=== PATIENT | female | born 1960 | race Caucasian/White ===

== ENCOUNTER 2016-12-01 21:24 | Observation (INO) | payer OTHER ==
[2016-12-01 21:57] LABS: BASOPHIL % 0.2 % (0.0-0.4); Eosinophil % 2.2 % (0.00-5.0); Granulocytes % 53.9 % (36.0-66.0); Lymphocytes % 36.5 % (24.0-44.0); Mean Cell Volume 90.4 fl (78-100); Mean Corpuscular Hemoglobin 31.2 pg (26-32); Mean Platelet Volume 10.2 fl (6-9.5); Monocytes % 7.2 % (0.0-12.0); Platelet Count 342 K/mm3 (150-450); Red Blood Count 4.91 M/mm3 (4.1-5.4); Red Cell Distribution Width 14.2 % (11.5-14.0); White Blood Count 8.5 K/mm3 (4.0-10.5)
--- NOTE | 2016-12-01 21:58 | ERPHSYRPT ---
- History of Present Illness Time Seen by Provider: 12/01/16 21:53 Historian: patient Physician History: 55 y/o female with history of CAD comes to the ER with complaints of back and chest pain that started today while mowing the lawn. Pt admits to having the sensation that she was choking. Pt describes the pain as pressure-like, constant , 5/10 and not relieved by nitro and ASA. Pt also admits to having diaphoresis and shortness of breath. Pt does report feeling very emotional after having a discussion with a family member. Timing/Duration: today Activities at Onset: activity, emotional stress Quality: pressure Location: substernal, back Chest Pain Radiation: no radiation Severity of Pain-Max: severe Severity of Pain-Current: moderate Modifying Factors: Improves With: nothing Associated Symptoms: nausea, palpitations, shortness of breath Nitro Today/Relief: 0.4 mg x 1 Aspirin Treatment Today: 81 mg x 3 Allergies/Adverse Reactions: morphine Allergy (Intermediate, Verified 12/01/16 22:03) Hives Penicillins Allergy (Mild, Verified 12/01/16 22:03) Hives Sulfa (Sulfonamide Antibiotics) Allergy (Mild, Verified 12/01/16 22:03) Hives metaproterenol [From Alupent] Allergy (Verified 12/01/16 22:03) sulfamethoxazole [From Septra] Allergy (Verified 12/01/16 22:03) tetracycline Allergy (Verified 12/01/16 22:03) trimethoprim [From Septra] Allergy (Verified 12/01/16 22:03) Home Medications: Hydrocodone/APAP 10/325 mg [[place] 10/325 MG Tablet] 1 tab PO Q4-6HPRN PRN 12/04/12 [History] Potassium Chloride 10 Meq Tab* [Klor Con 10 MEQ] 10 meq PO DAILY 11/17/13 [ History] Methocarbamol 500 mg [Robaxin 500 MG] 1,000 mg PO QID 07/01/16 [History] Montelukast Sodium 10 mg [Singulair 10 MG] 1 tab DAILY 12/01/16 [History] Triamterene/Hydrochlorothiazid [Dyazide 37.5-25 Capsule] 1 tab DAILY 12/01/16 [ History] Hx Tetanus, Diphtheria Vaccination/Date Given: (UNKNOWN) Hx Influenza Vaccination/Date Given: No Hx Pneumococcal Vaccination/Date Given: No - Review of Systems Constitutional: No Fever, No Chills Eyes: No Symptoms Ears, Nose, & Throat: No Symptoms Respiratory: Dyspnea, No Cough Cardiac: Chest Pain, No Edema, No Syncope Abdominal/Gastrointestinal: No Abdominal Pain, No Nausea, No Vomiting, No Diarrhea Genitourinary Symptoms: No Dysuria Musculoskeletal: No Back Pain, No Neck Pain Skin: No Rash Neurological: No Dizziness, No Focal Weakness, No Sensory Changes Psychological: No Symptoms, Anxiety Endocrine: No Symptoms All Other Systems: Reviewed and Negative - Past Medical History Pertinent Past Medical History: No Neurological History: Migraines ENT History: Other Cardiac History: Myocardial Infarction (IA) Respiratory History: Asthma Endocrine Medical History: Hypothyroidism Musculoskeletal History: Rheumatoid Arthritis GI Medical History: No Pertinent History History: No Pertinent History Psycho-Social History: No Pertinent History Female Reproductive Disorders: No Pertinent History Other Medical History: FREQUENT SINUSITIS. ALLERGIES - Past Surgical History Past Surgical History: No Neuro Surgical History: No Pertinent History Cardiac: Cardiac Catheterization Respiratory: No Pertinent History Gastrointestinal: Appendectomy Genitourinary: No Pertinent History Musculoskeletal: No Pertinent History Female Surgical History: Section, Hysterectomy, Other Other Surgical History: 3 C SECTIONS - Social History Smoking Status: Current every day smoker How long have you smoked: 25 Exposure to second hand smoke: Yes Drug Use: none Patient Lives Alone: No - Female History Hx Now: No - Nursing Vital Signs Nursing Vital Signs: Initial Vital Signs Temperature 99.1 F 12/01/16 21:43 Pulse Rate 108 H 12/01/16 21:43 Respiratory Rate 20 12/01/16 21:43 Blood Pressure 120/90 12/01/16 21:43 O2 Sat by Pulse Oximetry 97 12/01/16 21:43 Pain Scale Pain Intensity 3 - Physical Exam General Appearance: no apparent distress, alert, anxiety Eye Exam: PERRL/EOMI, eyes nml inspection Ears, Nose, Throat Exam: normal ENT inspection, moist mucous membranes Neck Exam: normal inspection, non-tender, supple, full range of motion Respiratory Exam: normal breath sounds, lungs clear, No chest tenderness, No respiratory distress Cardiovascular Exam: regular rate/rhythm, normal heart sounds, normal peripheral pulses, tachycardia Gastrointestinal/Abdomen Exam: soft, No tenderness, No mass Back Exam: normal inspection, No CVA tenderness, No vertebral tenderness Extremity Exam: normal inspection, normal range of motion Neurologic Exam: alert, oriented x 3, cooperative, normal mood/affect, sensation nml, No motor deficits Skin Exam: normal color, warm, dry SpO2: 97 Oxygen Delivery: Room Air - Course Nursing assessment & vital signs reviewed: Yes EKG Interpreted by Me: RATE, NORMAL AXIS, NORMAL INTERVALS, NORMAL QRS Ordered Tests: Active Orders 24 hr Category Date Time Status Contract Agent STAT Care 12/01/16 21:52 Active IV Insertion STAT Care 12/01/16 22:31 Active Oxygen-ED Only NASAL CANNULA 2 lpm Care 12/01/16 22:07 Active CHEST 2 VIEWS (PA AND LAT) Stat Exams 12/01/16 21:52 Taken CBC W DIFF Stat Lab 12/01/16 21:45 Completed CK-Creatinine Phosphokinase Stat Lab 12/01/16 21:45 Completed CMP Stat Lab 12/01/16 21:45 Completed D-DIMER QUANTITATION Stat Lab 12/01/16 21:45 Completed NT PRO BNP Stat Lab 12/01/16 21:45 Completed PROTIME WITH INR Stat Lab 12/01/16 21:45 Completed PTT Stat Lab 12/01/16 21:45 Completed TROPONIN Q3H Lab 12/01/16 21:50 Completed TROPONIN Q3H Lab 12/02/16 01:00 Ordered TROPONIN Q3H Lab 12/02/16 04:00 Ordered TROPONIN Q3H Lab 12/02/16 07:00 Ordered TROPONIN Q3H Lab 12/02/16 10:00 Ordered Medication Summary Discontinued Medications Generic Name Dose Route Start Last Admin Trade Name Freq PRN Reason Stop Dose Admin Aspirin 162 mg 12/01/16 22:37 Baby Aspirin 81 Mg Chew PO 12/01/16 22:38 STAT ONE Potassium Chloride 40 meq 12/01/16 22:28 12/01/16 22:33 Klor Con 10 Meq PO 12/01/16 22:29 40 meq STAT ONE Administration Potassium Chloride Confirm 12/01/16 22:31 Klor Con 10 Meq Administered 12/01/16 22:32 Dose 40 meq PO .STK-MED ONE Lab/Rad Data: Laboratory Result Diagrams 12/01/16 21:45 12/01/16 21:45 Laboratory Results 12/01/16 12/01/16 12/01/16 Range/Units 21:50 21:45 21:45 WBC (4.0-10.5) K/mm3 RBC (4.1-5.4) M/mm3 Hgb (12.0-16.0) gm/dl Hct (35-47) % MCV (78-100) fl MCH (26-32) pg MCHC (32-36) g/dl RDW (11.5-14.0) % Plt Count (150-450) K/mm3 MPV (6-9.5) fl Gran % (36.0-66.0) % Lymphocytes % (24.0-44.0) % Monocytes % (0.0-12.0) % Eosinophils % (0.00-5.0) % Basophils % (0.0-0.4) % Basophils # (0-0.4) INR 0.98 (0.8-3.0) APTT 34.5 (25.3-37.0) SECONDS D-Dimer 224 (0-500) ng/mL Sodium 138 (136-145) mEq/L Potassium 3.1 L (3.5-5.1) mEq/L Chloride 97 L (98-107) mEq/L Carbon Dioxide 26.0 (21-32) mEq/L Anion Gap 18.5 H (5-15) MEQ/L BUN 20 (9-20) mg/dL Creatinine 1.36 H (0.55-1.30) mg/dl Estimated GFR 43 ML/MIN Glucose 135 H (70-110) MG/DL Calcium 10.7 H (8.5-10.1) mg/dL Total Bilirubin 0.20 (0.2-1.0) mg/dL AST 21 (15-37) U/L ALT 26 (12-78) U/L Alkaline Phosphatase 100 (46-116) U/L Creatine Kinase 80 (26-192) U/L Troponin I < 0.017 (0.000-0.056) ng/ml NT-Pro-B Natriuret Pep 85 (0-125) pg/ml Serum Total Protein 8.5 H (6.4-8.2) gm/dL Albumin 4.5 (3.4-5.0) g/dL 12/01/16 Range/Units 21:45 WBC 8.5 (4.0-10.5) K/mm3 RBC 4.91 (4.1-5.4) M/mm3 Hgb 15.3 (12.0-16.0) gm/dl Hct 44.4 (35-47) % MCV 90.4 (78-100) fl MCH 31.2 (26-32) pg MCHC 34.5 (32-36) g/dl RDW 14.2 H (11.5-14.0) % Plt Count 342 (150-450) K/mm3 MPV 10.2 H (6-9.5) fl Gran % 53.9 (36.0-66.0) % Lymphocytes % 36.5 (24.0-44.0) % Monocytes % 7.2 (0.0-12.0) % Eosinophils % 2.2 (0.00-5.0) % Basophils % 0.2 (0.0-0.4) % Basophils # 0.02 (0-0.4) INR (0.8-3.0) APTT (25.3-37.0) SECONDS D-Dimer (0-500) ng/mL Sodium (136-145) mEq/L Potassium (3.5-5.1) mEq/L Chloride (98-107) mEq/L Carbon Dioxide (21-32) mEq/L Anion Gap (5-15) MEQ/L BUN (9-20) mg/dL Creatinine (0.55-1.30) mg/dl Estimated GFR ML/MIN Glucose (70-110) MG/DL Calcium (8.5-10.1) mg/dL Total Bilirubin (0.2-1.0) mg/dL AST (15-37) U/L ALT (12-78) U/L Alkaline Phosphatase (46-116) U/L Creatine Kinase (26-192) U/L Troponin I (0.000-0.056) ng/ml NT-Pro-B Natriuret Pep (0-125) pg/ml Serum Total Protein (6.4-8.2) gm/dL Albumin (3.4-5.0) g/dL - Progress Progress: improved Progress Note: 12/01/16 22:38 Pt has a good chest pain story having chest pressure in the center of her chest with back pain. The EKG does not show any acute findings and the first set of troponin is negative. D-dimer is also negative and the CXR does not show any infiltrate. Pt no longer has chest pain. Pt will be given an additional ASA 162mg. Pt has been admitted to Dr Nation for chest pain. 12/01/16 22:39 - Departure Time of Disposition: 22:41 Departure Disposition: In-patient Admission Clinical Impression: Chest pain Qualifiers: Chest pain type: unspecified Qualified Code(s): R07.9 - Chest pain, unspecified Condition: Stable Critical Care Time: No Critical Care Time(excluding separately billable procedures): 30-74 minutes Referrals: AGUSTINA ANGULO MD [Primary Care Provider] -
[2016-12-01 22:04] LABS: INR 0.98 (0.8-3.0); PROTIME 11.1 SECONDS (9.95-12.35)
[2016-12-01 22:07] LABS: PTT 34.5 SECONDS (25.3-37.0)
[2016-12-01 22:20] LABS: ALBUMIN 4.5 g/dL (3.4-5.0); ANION GAP 18.5 MEQ/L (5-15); BILIRUBIN,TOTAL 0.2 mg/dL (0.2-1.0); Potassium 3.1 mEq/L (3.5-5.1); Total Protein 8.5 gm/dL (6.4-8.2)
[2016-12-01] MEDS ORDERED: Klor Con 10 MEQ PO ONE ×2 (22:28→22:31)
[2016-12-01] MEDS ORDERED: BABY ASPIRIN 81 MG CHEW PO ONE (22:37)
[2016-12-01] MEDS ORDERED: BABY ASPIRIN 81 MG CHEW ONE (22:41)
[2016-12-01] MEDS ORDERED: MAALOX ES 30 ML UNIT DOSE PO PRN (22:42)
[2016-12-01] MEDS ORDERED: MILK OF MAGNESIA 30 ML PO PRN (22:42)
[2016-12-01] MEDS ORDERED: Zofran 4 MG/2 ML VIAL IV PRN (22:42)
[2016-12-01] MEDS ORDERED: Senokot-S Tablet PO PRN (22:42)
[2016-12-01] MEDS ORDERED: Norco 10/325 MG Tablet PO PRN (22:44)
[2016-12-02] MEDS: TYLENOL 325 MG PO PRN ×2 (00:18→05:27)
[2016-12-02 07:14] VITALS: BP 121/64
[2016-12-02 07:22] VITALS: PULSE 85; O2SAT 97
--- NOTE | 2016-12-02 07:59 | PCM.HP ---
History of Present Illness - Chief Complaint Chief Complaint: chest pain Date: 12/02/16 History of Present Illness: is a 55 year old female. who after mowing the yard and getting in an argument with her began having sharp pains through the substernal area to her back. She also had a chocking sensation in her throat and felt short of breath and was sweating from mowing. She took 3 nitro in total with no change in symptoms. She came to ED and was feeling better and symptosm resolved in the ED. iNitial evaluation was negative and she had serial troponins overnight htat were negative. CXR was negative and hher symptoms are resolved now. She had cath previously without significant blockage but was told she had HI in the past with current ekg showing same changes as previous with possible ant/spetal HI - Review of Systems Constitutional: No Fever, No Chills Eyes: No Symptoms Ears, Nose, & Throat: No Symptoms Respiratory: No Cough, No Short Of Breath Cardiac: No Chest Pain, No Edema, No Syncope Abdominal/Gastrointestinal: No Abdominal Pain, No Nausea, No Vomiting, No Diarrhea Genitourinary Symptoms: No Dysuria Musculoskeletal: No Back Pain, No Neck Pain Skin: No Rash Neurological: No Dizziness, No Focal Weakness, No Sensory Changes Psychological: No Symptoms Endocrine: No Symptoms Hematologic/Lymphatic: No Symptoms Immunological/Allergic: No Symptoms Medications & Allergies Home Medications: Home Medication List Hydrocodone/APAP 10/325 mg [[place] 10/325 MG Tablet] 1 tab PO Q4-6HPRN PRN 12/04/12 [History Confirmed 12/02/16] Methocarbamol 500 mg [Robaxin 500 MG] 1,000 mg PO QID PRN PRN 07/01/16 [ History Confirmed 12/02/16] Montelukast Sodium 10 mg [Singulair 10 MG] 1 tab DAILY 12/01/16 [History Confirmed 12/01/16] Aspirin EC 325 mg [Ecotrin 325 MG] 325 mg PO DAILY tablet.ec 12/02/16 [Rx ] Chlorthalidone 25 mg PO DAILY #30 tablet 12/02/16 [Rx] Potassium Chloride 10 Meq Tab* [Klor Con 10 MEQ] 30 meq PO DAILY #90 tab [Rx] Allergies/Adverse Reactions: Allergies Allergy/AdvReac Type Severity Reaction Status Date / Time morphine Allergy Intermediate Hives Verified 12/01/16 22:03 Penicillins Allergy Mild Hives Verified 12/01/16 22:03 Sulfa (Sulfonamide Allergy Mild Hives Verified 12/01/16 22:03 Antibiotics) metaproterenol [From Alupent] Allergy Verified 12/01/16 22:03 sulfamethoxazole Allergy Verified 12/01/16 22:03 [From Septra] tetracycline Allergy Verified 12/01/16 22:03 trimethoprim [From Septra] Allergy Verified 12/01/16 22:03 - Past Medical History Past Medical History: Yes Neurological History: No Pertinent History ENT History: No Pertinent History Cardiac History: Other Respiratory History: Asthma Endocrine Medical History: Hypothyroidism Musculoskelatal History: Arthritis GI Medical History: Diverticulitis, Polyps History: No Pertinent History Pyscho-Social History: No Pertinent History Reproductive Disorders: Endometriosis, Other Comment: Pt states she has mitroval prolapse. Pt had an HI in May. Pt has issues with UTI and Kidney stones. Historectomy in 2006 - Female History Hx Last Menstrual Period: hyst Are you now?: No - Past Surgical History Past Surgical History: Yes Neuro Surgical History: No Pertinent History Cardiac History: No Pertinent History Respiratory Surgery: No Pertinent History GI Surgical History: Appendectomy Genitourinary Surgical Hx: No Pertinent History Musculskeletal Surgical Hx: No Pertinent History Female Surgical History: Hysterectomy, Section Other Surgical History: 3 C-Sections, hystorectomy in 2005 - Social History Smoking Status: Current every day smoker How long have you smoked: 25 Exposure to second hand smoke: Yes Alcohol: None Drug Use: none - Physical Exam Vital Signs: Vital Signs - 24 hr Temp Pulse Resp BP Pulse Ox 12/02/16 07:18 85 18 97 12/02/16 07:13 97.8 F 90 20 121/64 95 12/02/16 05:56 56 L 20 96 12/02/16 04:00 98.2 F 83 18 114/58 98 12/01/16 23:27 98.6 F 94 H 18 131/61 98 Oxygen-Last 24 hours O2 Percentage 2 Liters = 28% O2 Percentage 2 Liters = 28% O2 Percentage 2 Liters = 28% General Appearance: no apparent distress, alert Neurologic Exam: alert, oriented x 3, cooperative, normal mood/affect, nml cerebellar function, nml station & gait, sensation nml, No motor deficits Eye Exam: PERRL/EOMI, eyes nml inspection Ears, Nose, Throat Exam: normal ENT inspection, TMs normal, pharynx normal, moist mucous membranes Neck Exam: normal inspection, non-tender, supple, full range of motion Respiratory Exam: normal breath sounds, lungs clear, No respiratory distress Cardiovascular Exam: regular rate/rhythm, normal heart sounds, normal peripheral pulses Gastrointestinal/Abdomen Exam: soft, normal bowel sounds, No tenderness, No mass Back Exam: normal inspection, normal range of motion, No CVA tenderness, No vertebral tenderness Extremity Exam: normal inspection, normal range of motion, pelvis stable Skin Exam: normal color, warm, dry, No rash Lymphatic Exam: No adenopathy Results - Labs Lab/Micro Results: Lab Results-Last 24 Hours 12/02/16 12/02/16 12/02/16 Range/Units 01:45 04:00 07:00 Troponin I < 0.017 < 0.017 < 0.017 (0.000-0.056) ng/ml Triglycerides (30-200) mg/dL Cholesterol (100-200) mg/dL LDL Cholesterol (5-99) mg/dL HDL Cholesterol (35-60) mg/dL Heart Disease Risk Ratio 12/02/16 Range/Units 07:00 Troponin I (0.000-0.056) ng/ml Triglycerides 317 H (30-200) mg/dL Cholesterol 306 H (100-200) mg/dL LDL Cholesterol 187 H (5-99) mg/dL HDL Cholesterol 32 L (35-60) mg/dL Heart Disease Risk Ratio 9.6 - Other Procedures and Tests Respiratory Therapy 12/02/16 05:51 Oxygen NASAL CANNULA 2 lpm 12/03/16 05:00 EKG ONCE 12/04/16 05:00 EKG ONCE 12/05/16 05:00 EKG ONCE Assessment/Plan (1) Chest pain Status: Acute Qualifiers: Chest pain type: unspecified Qualified Code(s): R07.9 - Chest pain, unspecified Assessment & Plan: resolved. With previous history of HI set up for outpatient stress test chest pain precautiosn discussed Code(s): R07.9 - CHEST PAIN, UNSPECIFIED (2) Anxiety Status: Acute Code(s): F41.9 - ANXIETY DISORDER, UNSPECIFIED
--- NOTE | 2016-12-02 08:01 | PCM.DCORD ---
- Discharge Discharge Date: 12/02/16 Disposition: Home, Self-Care Condition: Stable Prescriptions: New Chlorthalidone 25 mg PO DAILY #30 tablet Aspirin EC 325 mg [Ecotrin 325 MG] 325 mg PO DAILY tablet.ec Continue Hydrocodone/APAP 10/325 mg [[place] 10/325 MG Tablet] 1 tab PO Q4-6HPRN PRN PRN Reason: Pain Methocarbamol 500 mg [Robaxin 500 MG] 1,000 mg PO QID PRN PRN PRN Reason: Pain Montelukast Sodium 10 mg [Singulair 10 MG] 1 tab DAILY Changed Potassium Chloride 10 Meq Tab* [Klor Con 10 MEQ] 30 meq PO DAILY #90 tab Discontinued Triamterene/Hydrochlorothiazid [Dyazide 37.5-25 Capsule] 1 tab DAILY Follow up with: MINERVA ENRIQUE [Primary Care Provider] - 1 Week
--- NOTE | 2016-12-02 09:21 | XRAY ---
Indication: Chest pain. Comparison: November 17, 2013. PA/lateral chest again demonstrates normal heart and lungs. Bony thorax intact with now healing right 5th rib fracture.
[2016-12-02] MEDS ORDERED: TRIAMTERENE PO SCH (10:00)
[2016-12-02] MEDS ORDERED: Klor Con 10 MEQ PO SCH ×2 (10:00)
[2016-12-02] MEDS ORDERED: HYDROCHLOROTHIAZID PO SCH (10:00)
[2016-12-02] MEDS ORDERED: Singulair 10 MG PO SCH (10:00)
[2016-12-02] MEDS ORDERED: Maxzide-25MG Tablet PO SCH (10:00)
[2016-12-02] MEDS ORDERED: Ecotrin 325 MG PO SCH (10:00)
[2016-12-02] MEDS ORDERED: Robaxin 500 MG PO PRN (10:00)
== END 2016-12-02 09:00 | disposition home or self-care (01) ==
LOC: ED 21:24 → MED SURG 23:02
PROVIDERS: ADMIT Family Medicine; ATTEND Family Medicine
DX: R07.89 Other chest pain (principal); R07.9 Chest pain, unspecified; F41.9 Anxiety disorder, unspecified; R06.02 Shortness of breath; J45.909 Unspecified asthma, uncomplicated; E03.9 Hypothyroidism, unspecified; M19.90 Unspecified osteoarthritis, unspecified site; Z72.0 Tobacco use; Z79.899 Other long term (current) drug therapy
CPT/HCPCS: 36000; 36415; 71020; 80053; 80061; 82550; 83721; 83880; 84484; 85025; 85379; 85610; 85730; 93005; 93041; 93268; 94760; 99285; G0378; A9270-GY

== ENCOUNTER 2016-12-21 18:36 | Emergency (ER) | payer OTHER ==
[2016-12-21] MEDS ORDERED: BACIGUENT PACKET TP ONE (19:15)
[2016-12-21] MEDS ORDERED: Adacel Vial IM ONE ×2 (19:15→19:18)
[2016-12-21] MEDS ORDERED: XYLOCAINE 1% HCL 20 ML MDV IJ ONE (19:16)
[2016-12-21] MEDS ORDERED: BACIGUENT PACKET ONE (19:18)
--- NOTE | 2016-12-21 19:21 | ERPHSYRPT ---
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 Her right ear since 1:00 this afternoon. According to the patient she tripped over her mother's cane and struck the side of her head she has an approximately 2 cm laceration to the superior right ear she states she clean the area and placed bacitracin. She has mild tenderness in the on this Posterior to the ear she had no loss of consciousness she is not dizzy she has no neck pain Past medical history includes hypothyroidism, asthma, diverticulitis, polyps, endometriosis, arthritis, mitral valve prolapse, MD, UTI, kidney stones, hysterectomy Past surgical history includes and hysterectomy Last tetanus was 7 or 8 years ago Timing/Duration: today (1:00 this afternoon) Modifying Factors: Improves With: nothing Associated Symptoms: other (laceration superior aspect right ear(auricle)), No nausea, No vomiting, No abdominal pain, No shortness of breath, No heartburn, No diaphoresis, No cough, No chills, No chest pain, No fever, No headaches, No loss of appetite, No malaise, No rash, No syncope, No seizure, No weakness Allergies/Adverse Reactions: morphine Allergy (Intermediate, Verified 12/21/16 18:45) Hives Penicillins Allergy (Mild, Verified 12/21/16 18:45) Hives Sulfa (Sulfonamide Antibiotics) Allergy (Mild, Verified 12/21/16 18:45) Hives metaproterenol [From Alupent] Allergy (Verified 12/21/16 18:45) sulfamethoxazole [From Septra] Allergy (Verified 12/21/16 18:45) tetracycline Allergy (Verified 12/21/16 18:45) trimethoprim [From Septra] Allergy (Verified 12/21/16 18:45) Home Medications: Hydrocodone/APAP 10/325 mg [[place] 10/325 MG Tablet] 1 tab PO Q4-6HPRN PRN 12/04/12 [History] Methocarbamol 500 mg [Robaxin 500 MG] 1,000 mg PO QID PRN PRN 07/01/16 [ History] Montelukast Sodium 10 mg [Singulair 10 MG] 1 tab DAILY 12/01/16 [History] Hx Tetanus, Diphtheria Vaccination/Date Given: No Hx Influenza Vaccination/Date Given: No Hx Pneumococcal Vaccination/Date Given: No Immunizations Up to Date: Yes - Review of Systems Constitutional: No Fever, No Chills Eyes: No Symptoms Ears, Nose, & Throat: No Symptoms, Ear Pain, Other (laceration superior right auricle), No Ear Discharge, No Hearing Changes, No Tinnitus, No Nose Pain, No Nose Discharge, No Sinus Drainage, No Epistaxis, No Mouth Pain, No Mouth Swelling, No Loose Teeth, No Throat Pain, No Throat Swelling, No Hoarse, No Painful Swallowing, No Snoring, No Stridor Respiratory: No Cough, No Dyspnea Cardiac: No Chest Pain, No Edema, No Syncope Abdominal/Gastrointestinal: No Abdominal Pain, No Nausea, No Vomiting, No Diarrhea Genitourinary Symptoms: No Dysuria Musculoskeletal: No Back Pain, No Neck Pain Skin: Other (lacerationsuperior right auricle) Neurological: No Dizziness, No Focal Weakness, No Sensory Changes Psychological: No Symptoms Endocrine: No Symptoms All Other Systems: Reviewed and Negative - Past Medical History Pertinent Past Medical History: Yes Neurological History: No Pertinent History ENT History: No Pertinent History Cardiac History: Other Respiratory History: Asthma Endocrine Medical History: Hypothyroidism Musculoskeletal History: Arthritis GI Medical History: Diverticulitis, Polyps History: No Pertinent History Psycho-Social History: No Pertinent History Female Reproductive Disorders: Endometriosis, Other Other Medical History: Pt states she has mitroval prolapse. Pt had an MD in May. Pt has issues with UTI and Kidney stones. Historectomy in 2006 - Past Surgical History Past Surgical History: Yes Neuro Surgical History: No Pertinent History Cardiac: No Pertinent History Respiratory: No Pertinent History Gastrointestinal: Appendectomy Genitourinary: No Pertinent History Musculoskeletal: No Pertinent History Female Surgical History: Hysterectomy, Section Other Surgical History: 3 C-Sections, hystorectomy in 2006 - Social History Smoking Status: Current every day smoker How long have you smoked: 25 Exposure to second hand smoke: Yes Drug Use: none Patient Lives Alone: No - Female History Hx Now: No - Nursing Vital Signs Nursing Vital Signs: Initial Vital Signs Temperature 98.5 F 12/21/16 18:42 Pulse Rate 110 H 12/21/16 18:42 Respiratory Rate 18 12/21/16 18:42 Blood Pressure 150/81 12/21/16 18:42 O2 Sat by Pulse Oximetry 97 12/21/16 18:42 Pain Scale Pain Intensity 6 - Physical Exam General Appearance: no apparent distress, alert Eye Exam: PERRL/EOMI, eyes nml inspection Ears, Nose, Throat Exam: normal ENT inspection, TMs normal, pharynx normal, moist mucous membranes, dry mucous membranes, other (laceration 2 cm superior right auricle), No TM abnormal (R), No TM abnormal (L) Neck Exam: normal inspection, non-tender, supple, full range of motion Respiratory Exam: normal breath sounds, lungs clear, No respiratory distress Cardiovascular Exam: regular rate/rhythm, normal heart sounds, normal peripheral pulses Gastrointestinal/Abdomen Exam: soft, normal bowel sounds, No tenderness, No mass Back Exam: normal inspection, normal range of motion, No CVA tenderness, No vertebral tenderness Extremity Exam: normal inspection, normal range of motion, pelvis stable Neurologic Exam: alert, oriented x 3, cooperative, normal mood/affect, nml cerebellar function, nml station & gait, sensation nml, No motor deficits Skin Exam: normal color, other (2 cm laceration superior right auracle) SpO2 Interpretation: normal (97%) SpO2: 97 Oxygen Delivery: Room Air - Course Nursing assessment & vital signs reviewed: Yes Ordered Tests: Active Orders 24 hr Category Date Time Status Prepare for Sutures STAT Care 12/21/16 19:15 Active Sutures STAT Care 12/21/16 19:15 Active Wound Care STAT Care 12/21/16 19:15 Active Medication Summary Discontinued Medications Generic Name Dose Route Start Last Admin Trade Name Freq PRN Reason Stop Dose Admin Bacitracin 0.9 gm 12/21/16 19:15 12/21/16 19:23 Baciguent Packet TP 12/21/16 19:16 1 gm STAT ONE Administration Bacitracin Confirm 12/21/16 19:18 Baciguent Packet Administered 12/21/16 19:19 Dose 1 gm .ROUTE .STK-MED ONE Diphtheria/Tetanus/Acell Pertussis 0.5 ml 12/21/16 19:15 12/21/16 19:22 Adacel Vial IM 12/21/16 19:16 0.5 ml .ONCE ONE Administration Diphtheria/Tetanus/Acell Pertussis Confirm 12/21/16 19:18 Adacel Vial Administered 12/21/16 19:19 Dose 0.5 ml IM .STK-MED ONE Lidocaine HCl 5 ml 12/21/16 19:16 12/21/16 19:27 Xylocaine 1% Hcl 20 Ml Mdv IJ 12/21/16 19:17 5 ml STAT ONE Administration - Progress Progress: improved Progress Note: 12/21/16 19:41 Laceration repair 2 cm laceration right auricle (ear) Laceration sterilely prepped and draped anesthetized with 1% lidocaine Past surgical she repaired using 6 6. 0 Prolene sutures (interrupted) Bacitracin applied Patient's DTaP updated 12/21/16 19:44 Although patient's has a listed allergy of penicillin she states she can take Keflex and has taken this in the past without problems. - Departure Time of Disposition: 19:42 Departure Disposition: Home Clinical Impression: 2 cm laceration repair right auricle Contusion of right ear Qualifiers: Encounter type: initial encounter Qualified Code(s): S00.431A - Contusion of right ear, initial encounter Condition: Fair Critical Care Time: No Referrals: MINERVA ENRIQUE [Primary Care Provider] - Instructions: Care for a Laceration After Repair Additional Instructions: Return home. Bacitracin to laceration until healed. Cold packs to area 24-48 hours. Keflex 500 mg orally 3 times a day for 10 days. Tylenol every 4 hours as needed for pain. Follow-up with your family doctor or return if problems or sign of infection. Return for acute distress or for severe symptoms Prescriptions: Cephalexin Mh 500 mg [Keflex 500 mg] 500 mg PO TID #30 capsule
[2016-12-21] MEDS ORDERED: KEFLEX 500 MG PO ONE (19:45)
[2016-12-21] MEDS ORDERED: KEFLEX 500 MG ONE (19:48)
[2016-12-21 20:06] VITALS: BP 125/78; PULSE 78; O2SAT 98
[2016-12-21] MEDS ORDERED: XYLOCAINE 1% HCL 20 ML MDV ONE (21:56)
== END 2016-12-21 20:05 | disposition home or self-care (01) ==
LOC: ED 18:36
PROC: 0HQ2XZZ Repair Right Ear Skin, External Approach (ICD-10-PCS; principal; 2016-12-21)
DX: S01.311A Laceration without foreign body of right ear, initial encounter (principal); W01.0XXA Fall on same level from slipping, tripping and stumbling without subsequent striking against object, initial encounter
CPT/HCPCS: 12011; 90471; 90715; 96372; 99283; A9270-GY

== ENCOUNTER 2017-05-18 09:19 | Emergency (ER) | payer OTHER ==
[2017-05-18 09:35] VITALS: O2SAT 97
[2017-05-18] MEDS ORDERED: BABY ASPIRIN 81 MG CHEW PO ONE (09:44)
--- NOTE | 2017-05-18 09:51 | ERPHSYRPT ---
- History of Present Illness Time Seen by Provider: 05/18/17 09:44 Source: patient Exam Limitations: no limitations Patient Subjective Stated Complaint: pt here for pain to left shoulder that comes and goes with sob, pain for 2 days, pt was here last night with her mother and has not slept much, is voiced concern she was afriad it was her heart ,pt has recently had extensive cardiac work up that was negative Triage Nursing Assessment: pt arrived per wc from pain clinic holding left arm and crying out in pain. pt alert, resp labored, skin w/d/p , no edema, chest clear Physician History: 56-year-old white female with history of chronic back and neck pain arrives with complaint of pain in the left posterior scapular area sharp shooting symptoms off and on since yesterday no nausea did have shortness of breath with pain. Patient apparently was [id number] night with her mother and then at the pain control clinic. Patient stated that her pain became severe and so came to the emergency room. She states she has not had any nausea no vomiting no coughs no fevers. Patient states she did not take any of her medicines today. Past medical history includes migraines, hypothyroidism, asthma, high blood pressure, diverticulitis, polyps, endometriosis, osteoarthritis, rheumatoid factor, mitral valve prolapse, myocardial infarction 2005, kidney stones, Patient with chronic pain syndrome with back pain and neck pain.. Past surgical history includes , hysterectomy, appendectomy Patient states she had a recent extensive cardiac workup and stated that it came back negative. Social history patient continues to smoke cigarettes Timing/Duration: yesterday Severity: moderate Modifying Factors: Improves With: nothing Associated Symptoms: shortness of breath, other (pain in the posterior scapular area sharp shooting intermittent), No nausea, No vomiting, No abdominal pain, No heartburn, No diaphoresis, No cough, No chills, No chest pain, No fever, No headaches, No loss of appetite, No malaise, No rash, No syncope, No seizure, No weakness Allergies/Adverse Reactions: morphine Allergy (Intermediate, Verified 05/18/17 09:35) Hives Penicillins Allergy (Mild, Verified 05/18/17 09:35) Hives Sulfa (Sulfonamide Antibiotics) Allergy (Mild, Verified 05/18/17 09:35) Hives metaproterenol [From Alupent] Allergy (Verified 05/18/17 09:35) sulfamethoxazole [From Septra] Allergy (Verified 05/18/17 09:35) tetracycline Allergy (Verified 05/18/17 09:35) trimethoprim [From Septra] Allergy (Verified 05/18/17 09:35) Home Medications: Methocarbamol 500 mg [Robaxin 500 MG] 1,000 mg PO QID PRN PRN 07/01/16 [ History] Montelukast Sodium 10 mg [Singulair 10 MG] 1 tab DAILY 12/01/16 [History] AMITRIPTYLINE HCL 50 mg Tab [AMITRIPTYLINE HCL 50 mg Tablet] 50 mg PO HS [History] Celecoxib [Celebrex] 200 mg PO DAILY 05/11/17 [History] Omeprazole 20 MG [Prilosec 20 mg] 20 mg PO DAILY 05/11/17 [History] Hx Tetanus, Diphtheria Vaccination/Date Given: No Hx Influenza Vaccination/Date Given: Yes Hx Pneumococcal Vaccination/Date Given: No Immunizations Up to Date: Yes - Review of Systems Constitutional: No Fever, No Chills Eyes: No Symptoms Ears, Nose, & Throat: No Symptoms Respiratory: Dyspnea (shortness of breath when she has pain), No No Symptoms, No Cough, No Cyanosis, No Dyspnea on Exertion (FARRAR), No Stridor, No Wheezing Cardiac: Other (pain posterior scapular area sharp shooting, seconds in duration , intermittent since yesterday), No Chest Pain, No Edema, No Palpitations, No Syncope, No Orthopnea, No PND Abdominal/Gastrointestinal: No Abdominal Pain, No Nausea, No Vomiting, No Diarrhea Genitourinary Symptoms: No Dysuria Musculoskeletal: No Back Pain, No Neck Pain Skin: No Rash Neurological: No Dizziness, No Focal Weakness, No Sensory Changes Psychological: No Symptoms Endocrine: No Symptoms All Other Systems: Reviewed and Negative - Past Medical History Pertinent Past Medical History: Yes Neurological History: Migraines ENT History: No Pertinent History Cardiac History: Hypertension, Myocardial Infarction ([place]) Respiratory History: Asthma, Other Endocrine Medical History: Hypothyroidism, Other Musculoskeletal History: Osteoarthritis, Rheumatoid Arthritis GI Medical History: Diverticulitis, Polyps History: No Pertinent History Psycho-Social History: No Pertinent History Female Reproductive Disorders: Endometriosis, Other Other Medical History: UTI in summer, found stones in kidneys. Changed lasix to chlorthalidone. [place] June 2005. L4-5 disc herniation. - Past Surgical History Past Surgical History: Yes Neuro Surgical History: No Pertinent History Cardiac: No Pertinent History Respiratory: No Pertinent History Gastrointestinal: Appendectomy Genitourinary: No Pertinent History Musculoskeletal: No Pertinent History Female Surgical History: Hysterectomy, Section Other Surgical History: 3 C-Sections, hystorectomy in 2006 - Social History Smoking Status: Current every day smoker How long have you smoked: 25 Exposure to second hand smoke: Yes Drug Use: none Patient Lives Alone: No - Female History Hx Last Menstrual Period: post Hx Now: No - Nursing Vital Signs Nursing Vital Signs: Initial Vital Signs Temperature 98.2 F 05/18/17 09:21 Pulse Rate 102 H 05/18/17 09:21 Respiratory Rate 18 05/18/17 09:21 Blood Pressure 152/120 05/18/17 09:21 O2 Sat by Pulse Oximetry 97 05/18/17 09:21 Pain Scale Pain Intensity 7 - Physical Exam General Appearance: other (patient inmoderate distress on arrival to emergency room, now of mild distress) Eye Exam: PERRL/EOMI, eyes nml inspection Ears, Nose, Throat Exam: normal ENT inspection, TMs normal, pharynx normal, moist mucous membranes Neck Exam: normal inspection, non-tender, supple, full range of motion Respiratory Exam: normal breath sounds, lungs clear, No respiratory distress Cardiovascular Exam: regular rate/rhythm, normal heart sounds, normal peripheral pulses Gastrointestinal/Abdomen Exam: soft, normal bowel sounds, No tenderness, No mass Back Exam: normal inspection, normal range of motion, No CVA tenderness, No vertebral tenderness Extremity Exam: normal inspection, normal range of motion, pelvis stable Neurologic Exam: alert, oriented x 3, cooperative, normal mood/affect, nml cerebellar function, nml station & gait, sensation nml, No motor deficits Skin Exam: normal color, warm, dry, No rash Lymphatic Exam: No adenopathy SpO2 Interpretation: normal (97%) SpO2: 97 Oxygen Delivery: Room Air - Course Nursing assessment & vital signs reviewed: Yes EKG Interpreted by Me: RATE (96 bpm), Sinus Rhythm, Left Trail Deviation, Other ( EKG sinus rhythm, 96 bpm, left axis deviation, poor anterior R-wave progression , no acute ST or T wave changes compared to December 02, 2016) - Radiology Exams Chest X-ray Interpretation: Discussed w/ radiologist (chest x-ray: Normal heart and lungs. Bony thorax intact with healed right fifth rib fracture. No new/acute findings) Ordered Tests: Active Orders 24 hr Category Date Time Status Tire Assembler STAT Care 05/18/17 09:44 Active EKG-ER Only STAT Care 05/18/17 09:44 Active IV Insertion STAT Care 05/18/17 09:44 Active Pulse Oximetry (ED) STAT Care 05/18/17 09:44 Active CHEST 1 VIEW (PORTABLE) Stat Exams 05/18/17 09:44 Completed AMYLASE Stat Lab 05/18/17 09:52 Ordered AMYLASE Stat Lab 05/18/17 10:00 Completed CBC W DIFF Stat Lab 05/18/17 10:00 Completed CMP Stat Lab 05/18/17 10:00 Completed D-DIMER QUANTITATION Stat Lab 05/18/17 10:00 Completed LIPASE Stat Lab 05/18/17 09:52 Ordered LIPASE Stat Lab 05/18/17 10:00 Completed PROTIME WITH INR Stat Lab 05/18/17 10:00 Completed PTT Stat Lab 05/18/17 10:00 Completed TROPONIN Q3H Lab 05/18/17 10:00 Completed TROPONIN Q3H Lab 05/18/17 12:45 Ordered TROPONIN Q3H Lab 05/18/17 15:45 Ordered TROPONIN Q3H Lab 05/18/17 18:45 Ordered TROPONIN Q3H Lab 05/18/17 21:45 Ordered Medication Summary Discontinued Medications Generic Name Dose Route Start Last Admin Trade Name Freq PRN Reason Stop Dose Admin Aspirin 324 mg 05/18/17 09:44 05/18/17 10:24 Baby Aspirin 81 Mg Chew PO 05/18/17 09:45 324 mg STAT ONE Administration Aspirin Confirm 05/18/17 10:23 Baby Aspirin 81 Mg Chew Administered 05/18/17 10:24 Dose 324 mg .ROUTE .ST-MED ONE Lab/Rad Data: Laboratory Result Diagrams 05/18/17 10:00 05/18/17 10:00 Laboratory Results 05/18/17 05/18/17 05/18/17 Range/Units 10:00 10:00 10:00 WBC (4.0-10.5) K/mm3 RBC (4.1-5.4) M/mm3 Hgb (12.0-16.0) gm/dl Hct (35-47) % MCV (78-100) fl MCH (26-32) pg MCHC (32-36) g/dl RDW (11.5-14.0) % Plt Count (150-450) K/mm3 MPV (6-9.5) fl Gran % (36.0-66.0) % Lymphocytes % (24.0-44.0) % Monocytes % (0.0-12.0) % Eosinophils % (0.00-5.0) % Basophils % (0.0-0.4) % Basophils # (0-0.4) INR 0.94 (0.8-3.0) APTT 31.8 (25.3-37.0) SECONDS D-Dimer 228.97 (0-500) ng/mL Sodium 139 (136-145) mEq/L Potassium 4.3 (3.5-5.1) mEq/L Chloride 103 (98-107) mEq/L Carbon Dioxide 24.9 (21-32) mEq/L Anion Gap 15.6 H (5-15) MEQ/L BUN 19 (9-20) mg/dL Creatinine 1.06 (0.55-1.30) mg/dl Estimated GFR 57 ML/MIN Glucose 98 (70-110) MG/DL Calcium 9.4 (8.5-10.1) mg/dL Total Bilirubin 0.20 (0.2-1.0) mg/dL AST 14 L (15-37) U/L ALT 17 (12-78) U/L Alkaline Phosphatase 98 (46-116) U/L Troponin I < 0.017 (0.000-0.056) ng/ml Serum Total Protein 8.4 H (6.4-8.2) gm/dL Albumin 4.2 (3.4-5.0) g/dL Amylase 44 (25-115) U/L Lipase 140 (73-393) U/L 05/18/17 Range/Units 10:00 WBC 9.3 (4.0-10.5) K/mm3 RBC 4.78 (4.1-5.4) M/mm3 Hgb 14.6 (12.0-16.0) gm/dl Hct 44.9 (35-47) % MCV 93.9 (78-100) fl MCH 30.5 (26-32) pg MCHC 32.5 (32-36) g/dl RDW 15.8 H (11.5-14.0) % Plt Count 374 (150-450) K/mm3 MPV 9.5 (6-9.5) fl Gran % 65.7 (36.0-66.0) % Lymphocytes % 24.8 (24.0-44.0) % Monocytes % 6.0 (0.0-12.0) % Eosinophils % 3.3 (0.00-5.0) % Basophils % 0.2 (0.0-0.4) % Basophils # 0.02 (0-0.4) INR (0.8-3.0) APTT (25.3-37.0) SECONDS D-Dimer (0-500) ng/mL Sodium (136-145) mEq/L Potassium (3.5-5.1) mEq/L Chloride (98-107) mEq/L Carbon Dioxide (21-32) mEq/L Anion Gap (5-15) MEQ/L BUN (9-20) mg/dL Creatinine (0.55-1.30) mg/dl Estimated GFR ML/MIN Glucose (70-110) MG/DL Calcium (8.5-10.1) mg/dL Total Bilirubin (0.2-1.0) mg/dL AST (15-37) U/L ALT (12-78) U/L Alkaline Phosphatase (46-116) U/L Troponin I (0.000-0.056) ng/ml Serum Total Protein (6.4-8.2) gm/dL Albumin (3.4-5.0) g/dL Amylase (25-115) U/L Lipase (73-393) U/L - Progress Progress: improved Progress Note: 05/18/17 11:07 Patient improved but not pain-free after aspirin 234 mg by mouth. Labs are normal. Troponin normal d-dimer normal chest x-ray normal EKG no acute changes. I've offered repeat troponin. Patient is considering this. 05/18/17 11:12 The patient has decided that she does not want to stay for repeat troponin. I have told her that I cannot completely rule out cardiac etiology without doing this however she does not want to stay she states she's already played the heart game. Will release patient patient to take Tylenol as needed for pain and to follow- up with her pain security control center operator or her family doctor. 05/18/17 11:20 Patient's blood pressure is markedly improved as compared to arrival. - Departure Time of Disposition: 11:14 Departure Disposition: Home Clinical Impression: History of chronic pain Back pain Qualifiers: Back pain location: thoracic back pain Chronicity: unspecified Back pain laterality: bilateral Qualified Code(s): M54.6 - Pain in thoracic spine Condition: Fair Critical Care Time: No Referrals: MINERVA ENRIQUE [Primary Care Provider] - Additional Instructions: Return home, rest. Tylenol every 4 hours as needed for pain. Follow-up with your family doctor or pain security control center operator. Return for acute distress or for severe symptoms.
[2017-05-18 10:00] LABS: BASOPHIL % 0.2 % (0.0-0.4); Basophil (Absolute #) 0.02 (0-0.4); Eosinophil % 3.3 % (0.00-5.0); Eosinophil (Absolute #) 0.31 (0-0.5); Granulocyte Absolute (ANC) 6.13 (1.4-6.9); Granulocytes % 65.7 % (36.0-66.0); Hematocrit 44.9 % (35-47); Hemoglobin 14.6 gm/dl (12.0-16.0); Lymphocyte (Absolute #) 2.32 (1.0-4.6); Lymphocytes % 24.8 % (24.0-44.0); Mean Cell Volume 93.9 fl (78-100); Mean Corpuscular Hemoglobin 30.5 pg (26-32); Mean Corpuscular Hgb Concent. 32.5 g/dl (32-36); Mean Platelet Volume 9.5 fl (6-9.5); Monocyte (Absolute #) 0.56 (0.0-1.3); Platelet Count 374 K/mm3 (150-450); Red Blood Count 4.78 M/mm3 (4.1-5.4); Red Cell Distribution Width 15.8 % (11.5-14.0); White Blood Count 9.3 K/mm3 (4.0-10.5)
[2017-05-18] MEDS ORDERED: BABY ASPIRIN 81 MG CHEW ONE (10:23)
[2017-05-18 10:34] LABS: INR 0.94 (0.8-3.0)
[2017-05-18 10:36] LABS: D-DIMER QUANTITATION 228.97 ng/mL (0-500)
[2017-05-18 10:37] LABS: PTT 31.8 SECONDS (25.3-37.0)
[2017-05-18 10:41] LABS: ALBUMIN 4.2 g/dL (3.4-5.0); ANION GAP 15.6 MEQ/L (5-15); BILIRUBIN,TOTAL 0.2 mg/dL (0.2-1.0); Calcium 9.4 mg/dL (8.5-10.1); Carbon Dioxide 24.9 mEq/L (21-32); Creatinine 1 1.06 mg/dl (0.55-1.30); Potassium 4.3 mEq/L (3.5-5.1); Total Protein 8.4 gm/dL (6.4-8.2)
--- NOTE | 2017-05-18 10:43 | XRAY ---
Indication: Scapular pain. Comparison: December 01, 2016. Portable apical lordotic chest again demonstrates normal heart and lungs. Bony thorax intact with healed right 5th rib fracture. No new/acute findings.
[2017-05-18 10:59] VITALS: BP 139/67; PULSE 90
== END 2017-05-18 11:51 | disposition home or self-care (01) ==
LOC: ED 09:19
DX: M54.6 Pain in thoracic spine (principal); I10 Essential (primary) hypertension; I25.2 Old myocardial infarction; J45.909 Unspecified asthma, uncomplicated; E03.9 Hypothyroidism, unspecified; M19.90 Unspecified osteoarthritis, unspecified site; M06.9 Rheumatoid arthritis, unspecified; N80.9 Endometriosis, unspecified; Z72.0 Tobacco use; Z79.899 Other long term (current) drug therapy
CPT/HCPCS: 36000; 36415; 71045; 80053; 82150; 83690; 84484; 85025; 85379; 85610; 85730; 93005; 93041; 99284; A9270-GY

== ENCOUNTER 2022-01-03 11:39 | Observation (INO) | payer SELFPAY ==
--- NOTE | 2022-01-03 12:10 | ERPHSYRPT ---
- History of Present Illness Time Seen by Provider: 01/03/22 11:50 Source: patient Exam Limitations: clinical condition Physician History: This is a 61-year-old white female patient of Dr. Angulo who presents with 2- day history of left-sided weakness and facial drooping. Patient was last normal at 10:30 PM on 01/01/2022 as she went to bed. Patient states that she woke up and fell and has had left-sided weakness ever since. Patient also stated that in the last 6 weeks after her COVID 19 infection diagnosis she has had frequent, severe headaches. She denies chest pain she denies abdominal pain. She denies nausea vomiting or diarrhea. She has no UTI symptoms. She has never had anything like this before. Timing/Duration: day(s) (2) Severity: moderate Associated Symptoms: weakness (Left side) Allergies/Adverse Reactions: morphine Allergy (Intermediate, Verified 05/18/17 09:35) Hives Penicillins Allergy (Mild, Verified 05/18/17 09:35) Hives Sulfa (Sulfonamide Antibiotics) Allergy (Mild, Verified 05/18/17 09:35) Hives metaproterenol [From Alupent] Allergy (Verified 05/18/17 09:35) sulfamethoxazole [From Septra] Allergy (Verified 05/18/17 09:35) tetracycline Allergy (Verified 05/18/17 09:35) trimethoprim [From Septra] Allergy (Verified 05/18/17 09:35) Home Medications: Montelukast Sodium 10 mg [Singulair 10 MG] 1 tab DAILY 12/01/16 [History] Omeprazole 20 MG [Prilosec 20 mg] 20 mg PO DAILY 05/11/17 [History] Hx Tetanus, Diphtheria Vaccination/Date Given: No Hx Influenza Vaccination/Date Given: Yes Hx Pneumococcal Vaccination/Date Given: No Travel Risk - International Travel Have you traveled outside of the country in past 3 weeks: No - Coronavirus Screening Are you exhibiting any of the following symptoms?: No Close contact with a COVID-19 positive Pt in past 14-21 Days: No - Review of Systems Constitutional: Weakness Eyes: No Symptoms (Left side) Ears, Nose, & Throat: Other (Left facial drooping) Respiratory: No Symptoms Cardiac: No Symptoms Abdominal/Gastrointestinal: No Symptoms Genitourinary Symptoms: No Symptoms Musculoskeletal: Other (Left upper and lower extremity weakness) Skin: No Symptoms Neurological: Speech Changes, Other (Left upper and lower extremity weakness) Psychological: No Symptoms Endocrine: No Symptoms Hematologic/Lymphatic: No Symptoms Immunological/Allergic: No Symptoms All Other Systems: Reviewed and Negative - Past Medical History Pertinent Past Medical History: Yes Neurological History: Migraines ENT History: No Pertinent History Cardiac History: Hypertension, Myocardial Infarction ([place]) Respiratory History: Asthma, Other Endocrine Medical History: Hypothyroidism, Other Musculoskeletal History: Osteoarthritis, Rheumatoid Arthritis GI Medical History: Diverticulitis, Polyps History: No Pertinent History Psycho-Social History: No Pertinent History Female Reproductive Disorders: Endometriosis, Other Other Medical History: UTI in summer, found stones in kidneys. Changed lasix to chlorthalidone. [place] June 2005. L4-5 disc herniation. - Past Surgical History Past Surgical History: Yes Neuro Surgical History: No Pertinent History Cardiac: No Pertinent History Respiratory: No Pertinent History Gastrointestinal: Appendectomy Genitourinary: No Pertinent History Musculoskeletal: No Pertinent History Female Surgical History: Hysterectomy, Section Other Surgical History: 3 C-Sections, hystorectomy in 2005 - Social History Smoking Status: Current every day smoker How long have you smoked: 25 Exposure to second hand smoke: Yes Drug Use: none Patient Lives Alone: No - Nursing Vital Signs Nursing Vital Signs: Initial Vital Signs Temperature 96.8 F 01/03/22 11:57 Pulse Rate 90 01/03/22 11:57 Respiratory Rate 18 01/03/22 11:57 Blood Pressure 153/82 01/03/22 11:57 O2 Sat by Pulse Oximetry 98 01/03/22 11:57 Pain Scale Pain Intensity 0 - Physical Exam General Appearance: no apparent distress, alert, anxiety Eye Exam: PERRL/EOMI, eyes nml inspection Ears, Nose, Throat Exam: other (Left facial drooping) Neck Exam: normal inspection, non-tender, supple, full range of motion Respiratory Exam: normal breath sounds, lungs clear, airway intact, No chest tenderness, No respiratory distress Cardiovascular Exam: regular rate/rhythm, normal heart sounds, normal peripheral pulses Gastrointestinal/Abdomen Exam: soft, normal bowel sounds, No tenderness Pelvic Exam: not done Rectal Exam: not done Back Exam: normal inspection, normal range of motion, No CVA tenderness, No vertebral tenderness Extremity Exam: normal inspection, normal range of motion, pelvis stable Neurologic Exam: alert, oriented x 3, cooperative, motor deficits, facial droop (Left side) Skin Exam: normal color, warm, dry Lymphatic Exam: No adenopathy SpO2 Interpretation: normal O2 Delivery: Room Air - Course Nursing assessment & vital signs reviewed: Yes Ordered Tests: Active Orders 24 hr Category Date Time Status EKG-ER Only STAT Care 01/03/22 12:21 Active IV Insertion STAT Care 01/03/22 12:21 Active NPO (ED) STAT Care 01/03/22 12:21 Active POCT Glucose Check STAT Care 01/03/22 12:25 Active Pulse Oximetry (ED) STAT Care 01/03/22 12:21 Active Consult Neurology ROUTINE Cons 01/03/22 12:58 Completed CAROTID BILATERAL [US] Stat Exams 01/03/22 14:30 Completed ECHO W/2D AND DOPPLER [US] Stat Exams 01/03/22 14:31 Taken HEAD WITHOUT CONTRAST [CT] Stat Exams 01/03/22 11:47 Completed CBC W DIFF Stat Lab 01/03/22 12:17 Completed CMP Stat Lab 01/03/22 12:17 Completed LIPID PROFILE Stat Lab 01/03/22 16:55 Ordered POCT GLUCOSE Stat Lab 01/03/22 12:22 Completed PROTIME WITH INR Stat Lab 01/03/22 12:21 Completed T4 (Thyroxine) Stat Lab 01/03/22 Ordered TSH [TSH, 3RD Generation] Stat Lab 01/03/22 16:56 Ordered UA W/RFX CULTURE Stat Lab 01/03/22 12:24 Completed Transfer Order Routine Transfer 01/03/22 Ordered Medication Summary Discontinued Medications Generic Name Dose Route Start Last Admin Trade Name Mitchell PRN Reason Stop Dose Admin Aspirin 81 mg 01/03/22 16:44 Aspirin 81 Mg Tablet.Ec PO 01/03/22 16:45 1XONLY ONE Atorvastatin Calcium 80 mg 01/03/22 16:48 Atorvastatin Calcium 40 Mg Tablet PO 01/03/22 16:49 STAT STA Lab/Rad Data: Laboratory Result Diagrams 01/03/22 12:17 01/03/22 12:17 Laboratory Results 01/03/22 01/03/22 01/03/22 Range/Units 12:24 12:22 12:21 WBC (4.0-10.5) x10^3/uL RBC (4.1-5.4) x10^6/uL Hgb (12.0-16.0) g/dL Hct (35-47) % MCV (78-100) fL MCH (26-32) pg MCHC (32-36) g/dL RDW (11.5-14.0) % Plt Count (150-450) x10^3/uL MPV (7.5-11.0) fL Gran % (36.0-66.0) % Immature Gran % (Auto) (0.00-0.4) % Nucleat RBC Rel Count (0.00-0.1) % Eos # (Auto) (0-0.5) x10^3/uL Immature Gran # (Auto) (0.00-0.03) x10^3u/L Absolute Lymphs (auto) (1.0-4.6) x10^3/uL Absolute Monos (auto) (0.0-1.3) x10^3/uL Absolute Nucleated RBC (0.00-0.01) x10^3u/L Lymphocytes % (24.0-44.0) % Monocytes % (0.0-12.0) % Eosinophils % (0.00-5.0) % Basophils % (0.0-0.4) % Absolute Granulocytes (1.4-6.9) x10^3/uL Basophils # (0-0.4) x10^3/uL PT 10.3 (9.4-12.5) SECONDS INR 0.97 (0.8-3.0) Sodium (137-145) mmol/L Potassium (3.5-5.1) mmol/L Chloride (98-107) mmol/L Carbon Dioxide (22-30) mmol/L Anion Gap (5-15) MEQ/L BUN (7-17) mg/dL Creatinine (0.52-1.04) mg/dL Estimated GFR ML/MIN Glucose (74-106) mg/dL POC Glucometer 125 H (74 to 106) mg/dL Calcium (8.4-10.2) mg/dL Total Bilirubin (0.2-1.3) mg/dL AST (14-36) U/L ALT (0-35) U/L Alkaline Phosphatase (38-126) U/L Serum Total Protein (6.3-8.2) g/dL Albumin (3.5-5.0) g/dL Urinalys Dipstick Clnc MAIN LAB Urine Color YELLOW (YELLOW) Urine Appearance CLEAR (CLEAR) Urine pH 6.0 (5-6) Ur Specific Edelstein 1.025 (1.005-1.025) POC Urine Protein Conf NEGATIVE (Negative) Urine Ketones NEGATIVE (NEGATIVE) Urine Nitrite NEGATIVE (NEGATIVE) Urine Bilirubin NEGATIVE (NEGATIVE) Urine Urobilinogen 1 (0-1) mg/dL Urine Leukocytes NEGATIVE (NEGATIVE) Urine WBC (Auto) 0-2 (0-5) /HPF Urine RBC (Auto) 3-5 (0-2) /HPF U Epithel Cells (Auto) RARE (FEW) /HPF Urine Bacteria (Auto) RARE (NEGATIVE) /HPF Urine RBC TRACE-INTACT (0-5) Montrell/ul Urine Mucus (Auto) SLIGHT (NEGATIVE) /HPF Ur Culture Indicated? NO Urine Glucose NEGATIVE (NEGATIVE) mg/dL 01/03/22 01/03/22 Range/Units 12:17 12:17 WBC 11.0 H (4.0-10.5) x10^3/uL RBC 4.31 (4.1-5.4) x10^6/uL Hgb 13.3 (12.0-16.0) g/dL Hct 40.0 (35-47) % MCV 92.8 (78-100) fL MCH 30.9 (26-32) pg MCHC 33.3 (32-36) g/dL RDW 13.7 (11.5-14.0) % Plt Count 398 (150-450) x10^3/uL MPV 9.5 (7.5-11.0) fL Gran % 67.7 H (36.0-66.0) % Immature Gran % (Auto) 0.5 H (0.00-0.4) % Nucleat RBC Rel Count 0.0 (0.00-0.1) % Eos # (Auto) 0.44 (0-0.5) x10^3/uL Immature Gran # (Auto) 0.05 H (0.00-0.03) x10^3u/L Absolute Lymphs (auto) 2.40 (1.0-4.6) x10^3/uL Absolute Monos (auto) 0.62 (0.0-1.3) x10^3/uL Absolute Nucleated RBC 0.00 (0.00-0.01) x10^3u/L Lymphocytes % 21.7 L (24.0-44.0) % Monocytes % 5.6 (0.0-12.0) % Eosinophils % 4.0 (0.00-5.0) % Basophils % 0.5 (0.0-0.4) % Absolute Granulocytes 7.47 H (1.4-6.9) x10^3/uL Basophils # 0.06 (0-0.4) x10^3/uL PT (9.4-12.5) SECONDS INR (0.8-3.0) Sodium 139 (137-145) mmol/L Potassium 3.8 (3.5-5.1) mmol/L Chloride 112 H (98-107) mmol/L Carbon Dioxide 23 (22-30) mmol/L Anion Gap 7.9 (5-15) MEQ/L BUN 9 (7-17) mg/dL Creatinine 0.54 (0.52-1.04) mg/dL Estimated GFR > 60.0 ML/MIN Glucose 128 H (74-106) mg/dL POC Glucometer (74 to 106) mg/dL Calcium 8.8 (8.4-10.2) mg/dL Total Bilirubin 0.40 (0.2-1.3) mg/dL AST 22 (14-36) U/L ALT 16 (0-35) U/L Alkaline Phosphatase 68 (38-126) U/L Serum Total Protein 6.9 (6.3-8.2) g/dL Albumin 4.1 (3.5-5.0) g/dL Urinalys Dipstick Clnc Urine Color (YELLOW) Urine Appearance (CLEAR) Urine pH (5-6) Ur Specific Edelstein (1.005-1.025) POC Urine Protein Conf (Negative) Urine Ketones (NEGATIVE) Urine Nitrite (NEGATIVE) Urine Bilirubin (NEGATIVE) Urine Urobilinogen (0-1) mg/dL Urine Leukocytes (NEGATIVE) Urine WBC (Auto) (0-5) /HPF Urine RBC (Auto) (0-2) /HPF U Epithel Cells (Auto) (FEW) /HPF Urine Bacteria (Auto) (NEGATIVE) /HPF Urine RBC (0-5) Montrell/ul Urine Mucus (Auto) (NEGATIVE) /HPF Ur Culture Indicated? Urine Glucose (NEGATIVE) mg/dL - Progress Progress: improved, re-examined Progress Note: 01/03/22 13:04 CAT scan of the head without contrast shows remote lacunar infarct left external capsule. No acute intracranial abnormalities 01/03/22 14:44 Medical decision making: This patient is neurologically and hemodynamically stable at this time. The neurology sales and leasing consultant service informed us that it would be less than 3 hours for the neurologist to perform a telemetry neuro evaluation. The patient was last normal over 2 days ago. Therefore, I think it is reasonable that this be more of an urgent rather than emergent stat consultation. In the meantime, we will continue monitoring her from the clinical standpoint, continues vital signs and monitor, as well as perform an echocardiogram and carotid Dopplers. I did speak with radiology and an MRI cannot be performed until tomorrow. 01/03/22 16:58 Medical decision making: This patient's symptoms are on the left and we clarified with Dr. Marks the radiologist that the remote lacunar infarct is on the left and no mention of any right side intracranial acute infarctions. Patient underwent a tele neurologic evaluation by Dr. Delgadillo. She recommends admission with stroke work-up inpatient including hemoglobin A1c, lipid panel, OT and PT as well as daily aspirin and Lipitor. She also recommends an MRI without contrast to be done tomorrow and an MRA of the head. I spoke with Dr. Love who is covering for Dr. Angulo, the patient's primary care provider. I reviewed the patient history, physical findings and results of the work-up. In addition I reviewed the recommendations by the neurologist. She accepts the patient for admission. Discussed with : Mary Counseled pt/family regarding: lab results, diagnosis, rad results - Departure Departure Disposition: In-patient Admission Clinical Impression: CVA (cerebral vascular accident) Condition: Stable Critical Care Time: Yes Critical Care Time(excluding separately billable procedures): Critical 30-74 mins (40 minutes) Referrals: AGUSTINA ANGULO MD [Primary Care Provider] - Follow up/PCP as directed
--- NOTE | 2022-01-03 12:24 | XRAY ---
Indication: Headache, left facial droop, and left arm numbness. Multiple contiguous axial images obtained through the head without contrast. Comparison: None Ventriculosulcal pattern appears symmetric. Remote lacunar infarct left external capsule. No acute intracranial hemorrhage, abnormal extra-axial fluid collection, or mass effect. Fourth ventricle is midline without hydrocephalus. Goodwin-white matter differentiation preserved. Bony calvarium intact. Visualized paranasal sinuses and mastoid air cells are clear. Impression: Remote lacunar infarct left external capsule. No acute intracranial abnormalities.
[2022-01-03 12:36] LABS: Absolute Neutrophil Ct (ANC) 7.47 x10^3/uL (1.4-6.9); Basophil (Absolute #) 0.06 x10^3/uL (0-0.4); Eosinophil (Absolute #) 0.44 x10^3/uL (0-0.5); Hemoglobin 13.3 g/dL (12.0-16.0); Lymphocytes % 21.7 % (24.0-44.0); Mean Cell Volume 92.8 fL (78-100); Mean Corpuscular Hemoglobin 30.9 pg (26-32); Mean Corpuscular Hgb Concent. 33.3 g/dL (32-36); Mean Platelet Volume 9.5 fL (7.5-11.0); Monocyte (Absolute #) 0.62 x10^3/uL (0.0-1.3); Monocytes % 5.6 % (0.0-12.0); Neutrophil % 67.7 % (36.0-66.0); Platelet Count 398 x10^3/uL (150-450); Red Blood Count 4.31 x10^6/uL (4.1-5.4); Red Cell Distribution Width 13.7 % (11.5-14.0)
[2022-01-03 12:39] LABS: Bacteria RARE /HPF (NEGATIVE); Epithelial Cells RARE /HPF (FEW); Mucus SLIGHT /HPF (NEGATIVE); WBC 0-2 /HPF (0-5)
[2022-01-03 12:41] LABS: Appearance CLEAR (CLEAR); Bilirubin NEGATIVE (NEGATIVE); Glucose NEGATIVE (NEGATIVE); Ketones NEGATIVE (NEGATIVE); Nitrite NEGATIVE (NEGATIVE); Protein,Urine Dip NEGATIVE (Negative); RBC TRACE-INTACT Ery/ul (0-5); Specific Gravity 1.025 (1.005-1.025); Urine Cultured Indicated? NO; Urobilinogen 1 mg/dL (0-1)
[2022-01-03 12:42] LABS: Dipstick done @ ? MAIN LAB
[2022-01-03 12:46] LABS: INR 0.97 (0.8-3.0); PROTIME 10.3 SECONDS (9.4-12.5)
[2022-01-03 12:46] LABS: ALBUMIN 4.1 g/dL (3.5-5.0); ALKALINE PHOSPHATASE 68 U/L (38-126); ANION GAP 7.9 MEQ/L (5-15); BLOOD UREA NITROGEN 9 mg/dL (7-17); CHLORIDE 112 mmol/L (98-107); Calcium 8.8 mg/dL (8.4-10.2); Carbon Dioxide 23 mmol/L (22-30); Creatinine 1 0.54 mg/dL (0.52-1.04); EST GLOMERULAR FILTRATION RATE > 60.0 ML/MIN; Glucose 128 mg/dL (74-106); Potassium 3.8 mmol/L (3.5-5.1); SGOT/AST 22 U/L (14-36); SGPT/ALT 16 U/L (0-35); SODIUM 139 mmol/L (137-145); Total Protein 6.9 g/dL (6.3-8.2)
--- NOTE | 2022-01-03 16:27 | XRAY ---
Indication: Left sided weakness. Facial droop. Two-dimensional sonogram and color Doppler imaging of the carotid arteries of the neck performed. Comparison: None Examination of the right carotid circulation demonstrates widely patent common carotid, carotid bulb, internal carotid, and external carotid arteries. Distal internal carotid artery is tortuous. PSV of the CCA is 61 cm/s. PSV of the ICA is 78 cm/s. ICA/CCA ratio is 1.3. Normal antegrade vertebral artery flow. Examination of the left carotid circulation also demonstrates widely patent common carotid, carotid bulb, internal carotid, and external carotid arteries. PSV of the CCA is 79 cm/s. PSV of the ICA is 86 cm/s. ICA/CCA ratio is 1.1. Normal antegrade vertebral artery flow. Impression: Widely patent carotid arteries of the neck bilaterally. Velocity measurements and ratios are also negative for hemodynamically significant flow limiting stenosis.
[2022-01-03] MEDS: ECOTRIN 81 MG PO ONE (17:22)
[2022-01-03] MEDS ORDERED: BABY ASPIRIN 81 MG CHEW ONE (17:23)
[2022-01-03] MEDS: BABY ASPIRIN 81 MG CHEW PO ONE (17:24)
[2022-01-03] MEDS: LIPITOR 40MG PO STA (17:24)
[2022-01-03] MEDS ORDERED: LIPITOR 40MG ONE (17:24)
[2022-01-03 17:42] LABS: Risk Ratio 8.8
[2022-01-03 18:41] LABS: INFLUENZA A NEGATIVE (NEGATIVE); INFLUENZA B NEGATIVE (NEGATIVE); RESPIRATORY SYNCTIAL VIRUS NEGATIVE (Negative); SARS-CoV-2 Xpert Express NEGATIVE (NEGATIVE)
[2022-01-04] MEDS: TYLENOL 325 MG PO PRN (04:24)
[2022-01-04 05:19] LABS: Absolute Neutrophil Ct (ANC) 6.16 x10^3/uL (1.4-6.9); Basophil (Absolute #) 0.05 x10^3/uL (0-0.4); Eosinophil % 4.5 % (0.00-5.0); Eosinophil (Absolute #) 0.46 x10^3/uL (0-0.5); Hematocrit 40.5 % (35-47); Hemoglobin 13.3 g/dL (12.0-16.0); Lymphocyte (Absolute #) 3.16 x10^3/uL (1.0-4.6); Lymphocytes % 30.6 % (24.0-44.0); Mean Corpuscular Hemoglobin 30.9 pg (26-32); Mean Corpuscular Hgb Concent. 32.8 g/dL (32-36); Mean Platelet Volume 9.6 fL (7.5-11.0); Monocyte (Absolute #) 0.47 x10^3/uL (0.0-1.3); Monocytes % 4.6 % (0.0-12.0); Neutrophil % 59.6 % (36.0-66.0); Platelet Count 392 x10^3/uL (150-450); Red Blood Count 4.31 x10^6/uL (4.1-5.4); White Blood Count 10.3 x10^3/uL (4.0-10.5)
[2022-01-04 05:39] LABS: ALKALINE PHOSPHATASE 69 U/L (38-126); ANION GAP 8.7 MEQ/L (5-15); BLOOD UREA NITROGEN 10 mg/dL (7-17); CHLORIDE 112 mmol/L (98-107); Calcium 9.2 mg/dL (8.4-10.2); Carbon Dioxide 23 mmol/L (22-30); Creatinine 1 0.64 mg/dL (0.52-1.04); EST GLOMERULAR FILTRATION RATE > 60.0 ML/MIN; Glucose 106 mg/dL (74-106); SGOT/AST 20 U/L (14-36); SGPT/ALT 16 U/L (0-35); SODIUM 140 mmol/L (137-145); Total Protein 6.7 g/dL (6.3-8.2)
[2022-01-04] MEDS: NORCO 5/325 MG PO ONE (08:42)
[2022-01-04] MEDS: ECOTRIN 81 MG PO SCH (08:43)
[2022-01-04] MEDS: Dextrose 5% -0.45 NaCl 1000 ML 1,000 ML IV SCH (08:43)
[2022-01-04] MEDS ORDERED: Zofran 4 MG/2 ML VIAL IV PRN (08:50)
--- NOTE | 2022-01-04 08:50 | PCM.HP ---
History of Present Illness - Chief Complaint Chief Complaint: CVA History of Present Illness: is a 61 year old female of [address] Stack with PMHx HTN,CAD(AK),asthma, RA, Hx Covid illness 6 weeks prior. Patient presented to ER on 01/03/22 c/o left sided weakness and facial droop that started the evening of 01/01/22 .Patient states she has back problems and initially thought the leg weakness was due to her back but it persisted so she came to ER. ER eval included CT head that showed remote lacunar infart without acute findings.Teleneuro visit advised admission for MRI head and MRA in the morning. (see complete zneuro visit note ) - Review of Systems Constitutional: No Symptoms Eyes: No Symptoms Ears, Nose, & Throat: No Symptoms Respiratory: No Symptoms Cardiac: No Symptoms Abdominal/Gastrointestinal: No Symptoms Genitourinary Symptoms: No Symptoms Musculoskeletal: Back Pain (LBC ,chronic) Skin: No Symptoms Neurological: Sensory Changes, Other Medications & Allergies Home Medications: Home Medication List Aspirin 81 gm Chew [Baby Aspirin 81 mg Chew] 81 mg PO DAILY 01/03/22 [History Confirmed 01/03/22] Atorvastatin Calcium [Lipitor 40Mg] 40 mg PO DAILY #30 tablet 01/04/22 [Rx] Allergies/Adverse Reactions: Allergies Allergy/AdvReac Type Severity Reaction Status Date / Time morphine Allergy Intermediate Hives Verified 05/18/17 09:35 Penicillins Allergy Mild Hives Verified 05/18/17 09:35 Sulfa (Sulfonamide Allergy Mild Hives Verified 05/18/17 09:35 Antibiotics) metaproterenol [From Alupent] Allergy Verified 05/18/17 09:35 sulfamethoxazole Allergy Verified 05/18/17 09:35 [From Septra] tetracycline Allergy Verified 05/18/17 09:35 trimethoprim [From Septra] Allergy Verified 05/18/17 09:35 - Past Medical History Past Medical History: Yes Neurological History: Migraines ENT History: No Pertinent History Cardiac History: Hypertension, Myocardial Infarction (AK) Respiratory History: Asthma, Other Endocrine Medical History: Hypothyroidism, Other Musculoskelatal History: Osteoarthritis, Rheumatoid Arthritis GI Medical History: Diverticulitis, Polyps History: No Pertinent History Pyscho-Social History: No Pertinent History Reproductive Disorders: Endometriosis, Other Comment: UTI in summer, found stones in kidneys. Changed lasix to chlorthalidone. AK June 2005. L4-5 disc herniation. - Past Surgical History Past Surgical History: Yes Neuro Surgical History: No Pertinent History Cardiac History: No Pertinent History Respiratory Surgery: No Pertinent History GI Surgical History: Appendectomy Genitourinary Surgical Hx: No Pertinent History Musculskeletal Surgical Hx: No Pertinent History Female Surgical History: Hysterectomy, Section Other Surgical History: 3 C-Sections, hystorectomy in 2006 - Social History Smoking Status: Current every day smoker How long have you smoked: 25 Exposure to second hand smoke: Yes Alcohol: None Drug Use: none - Physical Exam Vital Signs: Vital Signs - 24 hr Temp Pulse Resp BP Pulse Ox 01/04/22 04:00 98.2 F 73 18 132/63 98 01/04/22 00:00 98.1 F 75 18 172/77 97 01/03/22 20:00 84 20 01/03/22 19:44 99.0 F 79 20 162/72 97 01/03/22 19:13 86 18 134/79 97 01/03/22 18:41 80 16 97 01/03/22 17:00 60 18 98 01/03/22 15:53 77 18 121/61 98 01/03/22 14:00 80 20 128/54 96 01/03/22 13:13 97 H 18 150/81 97 01/03/22 12:24 96 01/03/22 11:57 96.8 F 90 18 153/82 98 General Appearance: no apparent distress (is sitting up in bed) Neurologic Exam: alert, oriented x 3, cooperative, normal mood/affect, motor weakness (LUE,LLE with left corner of mouth down) Eye Exam: eyes nml inspection Ears, Nose, Throat Exam: normal ENT inspection Neck Exam: normal inspection, other (no bruit) Respiratory Exam: diminished breath sounds (bases,no whheze or ronchi or rales.) Cardiovascular Exam: regular rate/rhythm Gastrointestinal/Abdomen Exam: soft (nontender) Pelvic Exam: not done Rectal Exam: not done Back Exam: other (no CVA tenderness) Extremity Exam: other (LUE,LLE motor weakness3-4/5) Skin Exam: normal color, warm, dry Results - Labs Lab/Micro Results: Lab Results-Last 24 Hours 01/03/22 01/03/22 01/03/22 Range/Units 12:17 12:17 12:21 WBC 11.0 H (4.0-10.5) x10^3/uL RBC 4.31 (4.1-5.4) x10^6/uL Hgb 13.3 (12.0-16.0) g/dL Hct 40.0 (35-47) % MCV 92.8 (78-100) fL MCH 30.9 (26-32) pg MCHC 33.3 (32-36) g/dL RDW 13.7 (11.5-14.0) % Plt Count 398 (150-450) x10^3/uL MPV 9.5 (7.5-11.0) fL Gran % 67.7 H (36.0-66.0) % Immature Gran % (Auto) 0.5 H (0.00-0.4) % Nucleat RBC Rel Count 0.0 (0.00-0.1) % Eos # (Auto) 0.44 (0-0.5) x10^3/uL Immature Gran # (Auto) 0.05 H (0.00-0.03) x10^3u/L Absolute Lymphs (auto) 2.40 (1.0-4.6) x10^3/uL Absolute Monos (auto) 0.62 (0.0-1.3) x10^3/uL Absolute Nucleated RBC 0.00 (0.00-0.01) x10^3u/L Lymphocytes % 21.7 L (24.0-44.0) % Monocytes % 5.6 (0.0-12.0) % Eosinophils % 4.0 (0.00-5.0) % Basophils % 0.5 (0.0-0.4) % Absolute Granulocytes 7.47 H (1.4-6.9) x10^3/uL Basophils # 0.06 (0-0.4) x10^3/uL PT 10.3 (9.4-12.5) SECONDS INR 0.97 (0.8-3.0) Sodium 139 (137-145) mmol/L Potassium 3.8 (3.5-5.1) mmol/L Chloride 112 H (98-107) mmol/L Carbon Dioxide 23 (22-30) mmol/L Anion Gap 7.9 (5-15) MEQ/L BUN 9 (7-17) mg/dL Creatinine 0.54 (0.52-1.04) mg/dL Estimated GFR > 60.0 ML/MIN Glucose 128 H (74-106) mg/dL POC Glucometer (74 to 106) mg/dL Hemoglobin A1c (4.5-6.0) % Calcium 8.8 (8.4-10.2) mg/dL Total Bilirubin 0.40 (0.2-1.3) mg/dL AST 22 (14-36) U/L ALT 16 (0-35) U/L Alkaline Phosphatase 68 (38-126) U/L Serum Total Protein 6.9 (6.3-8.2) g/dL Albumin 4.1 (3.5-5.0) g/dL Triglycerides (30-150) mg/dL Cholesterol (50-200) mg/dL LDL Cholesterol (30-100) mg/dL HDL Cholesterol (40-60) mg/dL Heart Disease Risk Ratio Thyroxine (T4) (5.53-10.96) ug/dL TSH 3rd Generation (0.47-4.68) mIU/L Urinalys Dipstick Clnc Urine Color (YELLOW) Urine Appearance (CLEAR) Urine pH (5-6) Ur Specific Stuart (1.005-1.025) POC Urine Protein Conf (Negative) Urine Ketones (NEGATIVE) Urine Nitrite (NEGATIVE) Urine Bilirubin (NEGATIVE) Urine Urobilinogen (0-1) mg/dL Urine Leukocytes (NEGATIVE) Urine WBC (Auto) (0-5) /HPF Urine RBC (Auto) (0-2) /HPF U Epithel Cells (Auto) (FEW) /HPF Urine Bacteria (Auto) (NEGATIVE) /HPF Urine RBC (0-5) Montrell/ul Urine Mucus (Auto) (NEGATIVE) /HPF Ur Culture Indicated? Urine Glucose (NEGATIVE) mg/dL Influenza Type A Ag (NEGATIVE) Influenza Type B Ag (NEGATIVE) RSV (PCR) (Negative) SARS-CoV-2 (PCR) (NEGATIVE) 01/03/22 01/03/22 01/03/22 Range/Units 12:22 12:24 15:00 WBC (4.0-10.5) x10^3/uL RBC (4.1-5.4) x10^6/uL Hgb (12.0-16.0) g/dL Hct (35-47) % MCV (78-100) fL MCH (26-32) pg MCHC (32-36) g/dL RDW (11.5-14.0) % Plt Count (150-450) x10^3/uL MPV (7.5-11.0) fL Gran % (36.0-66.0) % Immature Gran % (Auto) (0.00-0.4) % Nucleat RBC Rel Count (0.00-0.1) % Eos # (Auto) (0-0.5) x10^3/uL Immature Gran # (Auto) (0.00-0.03) x10^3u/L Absolute Lymphs (auto) (1.0-4.6) x10^3/uL Absolute Monos (auto) (0.0-1.3) x10^3/uL Absolute Nucleated RBC (0.00-0.01) x10^3u/L Lymphocytes % (24.0-44.0) % Monocytes % (0.0-12.0) % Eosinophils % (0.00-5.0) % Basophils % (0.0-0.4) % Absolute Granulocytes (1.4-6.9) x10^3/uL Basophils # (0-0.4) x10^3/uL PT (9.4-12.5) SECONDS INR (0.8-3.0) Sodium (137-145) mmol/L Potassium (3.5-5.1) mmol/L Chloride (98-107) mmol/L Carbon Dioxide (22-30) mmol/L Anion Gap (5-15) MEQ/L BUN (7-17) mg/dL Creatinine (0.52-1.04) mg/dL Estimated GFR ML/MIN Glucose (74-106) mg/dL POC Glucometer 125 H (74 to 106) mg/dL Hemoglobin A1c (4.5-6.0) % Calcium (8.4-10.2) mg/dL Total Bilirubin (0.2-1.3) mg/dL AST (14-36) U/L ALT (0-35) U/L Alkaline Phosphatase (38-126) U/L Serum Total Protein (6.3-8.2) g/dL Albumin (3.5-5.0) g/dL Triglycerides (30-150) mg/dL Cholesterol (50-200) mg/dL LDL Cholesterol (30-100) mg/dL HDL Cholesterol (40-60) mg/dL Heart Disease Risk Ratio Thyroxine (T4) 8.21 (5.53-10.96) ug/dL TSH 3rd Generation (0.47-4.68) mIU/L Urinalys Dipstick Clnc MAIN LAB Urine Color YELLOW (YELLOW) Urine Appearance CLEAR (CLEAR) Urine pH 6.0 (5-6) Ur Specific Stuart 1.025 (1.005-1.025) POC Urine Protein Conf NEGATIVE (Negative) Urine Ketones NEGATIVE (NEGATIVE) Urine Nitrite NEGATIVE (NEGATIVE) Urine Bilirubin NEGATIVE (NEGATIVE) Urine Urobilinogen 1 (0-1) mg/dL Urine Leukocytes NEGATIVE (NEGATIVE) Urine WBC (Auto) 0-2 (0-5) /HPF Urine RBC (Auto) 3-5 (0-2) /HPF U Epithel Cells (Auto) RARE (FEW) /HPF Urine Bacteria (Auto) RARE (NEGATIVE) /HPF Urine RBC TRACE-INTACT (0-5) Montrell/ul Urine Mucus (Auto) SLIGHT (NEGATIVE) /HPF Ur Culture Indicated? NO Urine Glucose NEGATIVE (NEGATIVE) mg/dL Influenza Type A Ag (NEGATIVE) Influenza Type B Ag (NEGATIVE) RSV (PCR) (Negative) SARS-CoV-2 (PCR) (NEGATIVE) 01/03/22 01/03/22 01/03/22 Range/Units 16:55 16:56 17:10 WBC (4.0-10.5) x10^3/uL RBC (4.1-5.4) x10^6/uL Hgb (12.0-16.0) g/dL Hct (35-47) % MCV (78-100) fL MCH (26-32) pg MCHC (32-36) g/dL RDW (11.5-14.0) % Plt Count (150-450) x10^3/uL MPV (7.5-11.0) fL Gran % (36.0-66.0) % Immature Gran % (Auto) (0.00-0.4) % Nucleat RBC Rel Count (0.00-0.1) % Eos # (Auto) (0-0.5) x10^3/uL Immature Gran # (Auto) (0.00-0.03) x10^3u/L Absolute Lymphs (auto) (1.0-4.6) x10^3/uL Absolute Monos (auto) (0.0-1.3) x10^3/uL Absolute Nucleated RBC (0.00-0.01) x10^3u/L Lymphocytes % (24.0-44.0) % Monocytes % (0.0-12.0) % Eosinophils % (0.00-5.0) % Basophils % (0.0-0.4) % Absolute Granulocytes (1.4-6.9) x10^3/uL Basophils # (0-0.4) x10^3/uL PT (9.4-12.5) SECONDS INR (0.8-3.0) Sodium (137-145) mmol/L Potassium (3.5-5.1) mmol/L Chloride (98-107) mmol/L Carbon Dioxide (22-30) mmol/L Anion Gap (5-15) MEQ/L BUN (7-17) mg/dL Creatinine (0.52-1.04) mg/dL Estimated GFR ML/MIN Glucose (74-106) mg/dL POC Glucometer (74 to 106) mg/dL Hemoglobin A1c (4.5-6.0) % Calcium (8.4-10.2) mg/dL Total Bilirubin (0.2-1.3) mg/dL AST (14-36) U/L ALT (0-35) U/L Alkaline Phosphatase (38-126) U/L Serum Total Protein (6.3-8.2) g/dL Albumin (3.5-5.0) g/dL Triglycerides 386 H (30-150) mg/dL Cholesterol 244 H (50-200) mg/dL LDL Cholesterol 142 H (30-100) mg/dL HDL Cholesterol 28 L (40-60) mg/dL Heart Disease Risk Ratio 8.8 Thyroxine (T4) (5.53-10.96) ug/dL TSH 3rd Generation 0.626 (0.47-4.68) mIU/L Urinalys Dipstick Clnc Urine Color (YELLOW) Urine Appearance (CLEAR) Urine pH (5-6) Ur Specific Stuart (1.005-1.025) POC Urine Protein Conf (Negative) Urine Ketones (NEGATIVE) Urine Nitrite (NEGATIVE) Urine Bilirubin (NEGATIVE) Urine Urobilinogen (0-1) mg/dL Urine Leukocytes (NEGATIVE) Urine WBC (Auto) (0-5) /HPF Urine RBC (Auto) (0-2) /HPF U Epithel Cells (Auto) (FEW) /HPF Urine Bacteria (Auto) (NEGATIVE) /HPF Urine RBC (0-5) Montrell/ul Urine Mucus (Auto) (NEGATIVE) /HPF Ur Culture Indicated? Urine Glucose (NEGATIVE) mg/dL Influenza Type A Ag NEGATIVE (NEGATIVE) Influenza Type B Ag NEGATIVE (NEGATIVE) RSV (PCR) NEGATIVE (Negative) SARS-CoV-2 (PCR) NEGATIVE (NEGATIVE) 01/03/22 01/04/22 01/04/22 Range/Units Unknown 05:00 05:00 WBC 10.3 (4.0-10.5) x10^3/uL RBC 4.31 (4.1-5.4) x10^6/uL Hgb 13.3 (12.0-16.0) g/dL Hct 40.5 (35-47) % MCV 94.0 (78-100) fL MCH 30.9 (26-32) pg MCHC 32.8 (32-36) g/dL RDW 14.0 (11.5-14.0) % Plt Count 392 (150-450) x10^3/uL MPV 9.6 (7.5-11.0) fL Gran % 59.6 (36.0-66.0) % Immature Gran % (Auto) 0.2 (0.00-0.4) % Nucleat RBC Rel Count 0.0 (0.00-0.1) % Eos # (Auto) 0.46 (0-0.5) x10^3/uL Immature Gran # (Auto) 0.02 (0.00-0.03) x10^3u/L Absolute Lymphs (auto) 3.16 (1.0-4.6) x10^3/uL Absolute Monos (auto) 0.47 (0.0-1.3) x10^3/uL Absolute Nucleated RBC 0.00 (0.00-0.01) x10^3u/L Lymphocytes % 30.6 (24.0-44.0) % Monocytes % 4.6 (0.0-12.0) % Eosinophils % 4.5 (0.00-5.0) % Basophils % 0.5 (0.0-0.4) % Absolute Granulocytes 6.16 (1.4-6.9) x10^3/uL Basophils # 0.05 (0-0.4) x10^3/uL PT (9.4-12.5) SECONDS INR (0.8-3.0) Sodium 140 (137-145) mmol/L Potassium 4.0 (3.5-5.1) mmol/L Chloride 112 H (98-107) mmol/L Carbon Dioxide 23 (22-30) mmol/L Anion Gap 8.7 (5-15) MEQ/L BUN 10 (7-17) mg/dL Creatinine 0.64 (0.52-1.04) mg/dL Estimated GFR > 60.0 ML/MIN Glucose 106 (74-106) mg/dL POC Glucometer (74 to 106) mg/dL Hemoglobin A1c 5.43 (4.5-6.0) % Calcium 9.2 (8.4-10.2) mg/dL Total Bilirubin 0.40 (0.2-1.3) mg/dL AST 20 (14-36) U/L ALT 16 (0-35) U/L Alkaline Phosphatase 69 (38-126) U/L Serum Total Protein 6.7 (6.3-8.2) g/dL Albumin 4.0 (3.5-5.0) g/dL Triglycerides (30-150) mg/dL Cholesterol (50-200) mg/dL LDL Cholesterol (30-100) mg/dL HDL Cholesterol (40-60) mg/dL Heart Disease Risk Ratio Thyroxine (T4) (5.53-10.96) ug/dL TSH 3rd Generation (0.47-4.68) mIU/L Urinalys Dipstick Clnc Urine Color (YELLOW) Urine Appearance (CLEAR) Urine pH (5-6) Ur Specific Stuart (1.005-1.025) POC Urine Protein Conf (Negative) Urine Ketones (NEGATIVE) Urine Nitrite (NEGATIVE) Urine Bilirubin (NEGATIVE) Urine Urobilinogen (0-1) mg/dL Urine Leukocytes (NEGATIVE) Urine WBC (Auto) (0-5) /HPF Urine RBC (Auto) (0-2) /HPF U Epithel Cells (Auto) (FEW) /HPF Urine Bacteria (Auto) (NEGATIVE) /HPF Urine RBC (0-5) Montrell/ul Urine Mucus (Auto) (NEGATIVE) /HPF Ur Culture Indicated? Urine Glucose (NEGATIVE) mg/dL Influenza Type A Ag (NEGATIVE) Influenza Type B Ag (NEGATIVE) RSV (PCR) (Negative) SARS-CoV-2 (PCR) (NEGATIVE) Accuchecks Date 01/03/22 Time 12:20 - Radiology Impressions Radiology Exams & Impressions: Radiology Procedures Category Date Time Status CAROTID BILATERAL [US] Stat Exams 01/03/22 14:30 Completed ECHO W/2D AND DOPPLER [US] Stat Exams 01/03/22 14:31 Taken HEAD WITHOUT CONTRAST [CT] Stat Exams 01/03/22 11:47 Completed MRA BRAIN WITHOUT CONTRAST [MRI] Stat Exams 01/04/22 09:00 Ordered MRI BRAIN W/O CONTRAST [MRI] Stat Exams 01/04/22 08:00 Ordered Assessment/Plan (1) CVA (cerebral vascular accident) Status: Suspected Assessment & Plan: see Teleneuro recommendations Code(s): I63.9 - CEREBRAL INFARCTION, UNSPECIFIED (2) HTN (hypertension) Status: Chronic Assessment & Plan: monitor,continue home meds. Code(s): I10 - ESSENTIAL (PRIMARY) HYPERTENSION (3) Mixed hypercholesterolemia and hypertriglyceridemia Status: Acute Code(s): E78.2 - MIXED HYPERLIPIDEMIA
--- NOTE | 2022-01-04 10:01 | ECHO ---
Transthoracic echocardiographic examination and color Doppler was done on 01/03/2022. INDICATION: Hypertension. IMPRESSION: 1) NO REGIONAL WALL MOTION ABNORMALITY. ESTIMATED GLOBAL LEFT VENTRICULAR EJECTION FRACTION OF AROUND 60 TO 65%. 2) TRACE MITRAL REGURGITATION. 3) TRACE TRICUSPID REGURGITATION. RIGHT VENTRICULAR SYSTOLIC PRESSURE OF26 MM OF MERCURY. 4) LEFT VENTRICULAR HYPERTROPHY. The left ventricle was visualized and demonstrated adequate motion of all the segments. Estimated global left ventricular ejection fraction around 60 to 65%. There is mild left ventricular hypertrophy. The mitral valve is seen and this opens adequately. There is trace mitral regurgitation. Left atrium is normal. The aortic valve opens adequately. There is no significant gradient across the left ventricular outflow tract. The left ventricular septum is prominent but there is no significant gradient across the left ventricular outflow tract. The right side chambers are normal with normal right ventricular contractility. There is trace tricuspid regurgitation. The right ventricular systolic pressure of 26 mm of Mercury. The atrial septum appears to be thickened.
[2022-01-04] MEDS: LIPITOR 40MG PO SCH (11:25)
[2022-01-04] MEDS: Ativan 2 MG/1 ML VIAL IV ONE (11:25)
[2022-01-04 12:09] VITALS: BP 136/69; PULSE 62; O2SAT 96
--- NOTE | 2022-01-04 13:02 | XRAY ---
Indication: CVA. Sagittal, coronal, and axial MRI brain performed without contrast using T1, T2, FLAIR, diffusion, and ADC sequences. Comparison: None Several images are slightly degraded by motion artifact. Age-appropriate global atrophy with minimal petechial periventricular degenerative micro-ischemia signal bilaterally. Right cheko demonstrates 5 mm focus of degenerative micro-ischemia. Diffusion images demonstrates 1.3 cm focus of restricted signal right thalamus favoring ischemia. No acute intracranial hemorrhage, abnormal extra-axial fluid collection, or mass effect. Fourth ventricle is midline without hydrocephalus. 7/8 cranial nerve complex bilaterally symmetric. Normal flow void signal within the major intracerebral circulation. Normal appearing craniocervical junction and sella turcica. Visualized paranasal sinuses are clear. Impression: 1. Minimal motion artifact. 2. 1.3 cm focus ischemia right thalamus. No acute hemorrhage/mass effect. 3. Atrophy and degenerative micro-ischemia within normal limits for patient's age.
--- NOTE | 2022-01-04 13:06 | XRAY ---
Indication: CVA. Multi slab 3-D [id number] MRA [place] performed. Comparison: None Several images slightly degraded by motion. Distal internal carotid arteries are bilaterally symmetric without critical stenosis, obstruction, or AV malformation. Normal carotid terminus with normal branching A1 and M1 segments bilaterally. More distal anterior cerebral and middle cerebral arteries are normal in MRA appearance bilaterally. Incidental anatomic variant for origin right posterior cerebral artery which is unremarkable. Posterior circulation demonstrates normal MRA appearance to the basilar, left/right posterior cerebral, and left/right superior cerebellar arteries. Impression: Negative MRA [place].
== END 2022-01-04 14:52 | disposition home or self-care (01) ==
LOC: ED 11:39 → INTOOBSV 19:23 → MED SURG 19:23
PROVIDERS: ADMIT General Practice; ATTEND General Practice
DX: I63.9 Cerebral infarction, unspecified (principal); I10 Essential (primary) hypertension; I25.2 Old myocardial infarction; E78.5 Hyperlipidemia, unspecified; Z79.899 Other long term (current) drug therapy; Z20.828 Contact with and (suspected) exposure to other viral communicable diseases; Z72.0 Tobacco use
CPT/HCPCS: 0241U; 36000; 36415; 70450; 70544; 70551; 80053; 80061; 81015; 82607; 82947; 83036; 83721; 84436; 84443; 85025; 85610; 93005; 93306; 93880; 94760; 99285; 99291; J2060; Q3014; A9270-GY; G0378

== ENCOUNTER 2022-08-14 16:42 | Emergency (ER) | payer OTHER ==
[2022-08-14] MEDS ORDERED: Sodium Chloride 0.9% 1000 ML 1,000 ML IV STA (17:25)
[2022-08-14] MEDS ORDERED: TORAdol 30 mg Injection IV ONE (17:27)
[2022-08-14] MEDS ORDERED: TYLENOL EXTRA STRENGTH 500 MG PO STA (17:28)
[2022-08-14] MEDS ORDERED: Zofran 4 MG/2 ML VIAL IV ONE (17:28)
[2022-08-14 17:45] LABS: Absolute Neutrophil Ct (ANC) 4.02 x10^3/uL (1.4-6.9); BASOPHIL % 0.5 % (0.0-0.4); Basophil (Absolute #) 0.04 x10^3/uL (0-0.4); Eosinophil % 3.8 % (0.00-5.0); Eosinophil (Absolute #) 0.28 x10^3/uL (0-0.5); Hematocrit 44.4 % (35-47); Hemoglobin 14.8 g/dL (12.0-16.0); IMMATURE GRAN # 0.03 x10^3u/L (0.00-0.03); IMMATURE GRAN % 0.4 % (0.00-0.4); Lymphocyte (Absolute #) 2.62 x10^3/uL (1.0-4.6); Lymphocytes % 35.2 % (24.0-44.0); Mean Cell Volume 94.3 fL (78-100); Mean Corpuscular Hemoglobin 31.4 pg (26-32); Mean Corpuscular Hgb Concent. 33.3 g/dL (32-36); Mean Platelet Volume 9.3 fL (7.5-11.0); Monocyte (Absolute #) 0.46 x10^3/uL (0.0-1.3); Monocytes % 6.2 % (0.0-12.0); Neutrophil % 53.9 % (36.0-66.0); Platelet Count 324 x10^3/uL (150-450); Red Blood Count 4.71 x10^6/uL (4.1-5.4); Red Cell Distribution Width 13.8 % (11.5-14.0); White Blood Count 7.5 x10^3/uL (4.0-10.5)
[2022-08-14] MEDS ORDERED: Sodium Chloride 0.9% 1000 ML 1,000 ML ONE (17:49)
[2022-08-14] MEDS ORDERED: TORAdol 30 mg Injection ONE (17:49)
[2022-08-14] MEDS ORDERED: TYLENOL EXTRA STRENGTH 500 MG ONE ×2 (17:49→17:56)
[2022-08-14] MEDS ORDERED: Zofran 4 MG/2 ML VIAL ONE (17:49)
[2022-08-14 18:02] LABS: ALBUMIN 4.5 g/dL (3.5-5.0); ALKALINE PHOSPHATASE 71 U/L (38-126); ANION GAP 15.1 MEQ/L (5-15); BLOOD UREA NITROGEN 15 mg/dL (7-17); CHLORIDE 106 mmol/L (98-107); CK-Creatinine Phosphokinase 82 U/L (30-135); Calcium 9.4 mg/dL (8.4-10.2); Carbon Dioxide 23 mmol/L (22-30); Creatinine 1 0.92 mg/dL (0.52-1.04); EST GLOMERULAR FILTRATION RATE > 60.0 ML/MIN; Glucose 182 mg/dL (74-106); SGOT/AST 25 U/L (14-36); SGPT/ALT 21 U/L (0-35); SODIUM 140 mmol/L (137-145); Total Protein 7.8 g/dL (6.3-8.2)
--- NOTE | 2022-08-14 19:16 | ERPHSYRPT ---
- History of Present Illness Source: patient Exam Limitations: no limitations Patient Subjective Stated Complaint: Patient is c/o cramping to both hands and feet for the past 24 hours. Patient indicates that this has happened in the past when her potassium is low. Patient also has some complain of left side pain as well. Triage Nursing Assessment: Patient ambulated back to ER with a slow, unsteady gait. Patient states that is her normal gait since her stroke in December causing some left sided weakness. She is alert and oriented. No SOB. Hx Tetanus, Diphtheria Vaccination/Date Given: Yes Hx Influenza Vaccination/Date Given: No Hx Pneumococcal Vaccination/Date Given: No Immunizations Up to Date: Yes <VALERY CHACKO - Last Filed: 08/14/22 19:13> <REJI NEW - Last Filed: 08/15/22 23:13> - History of Present Illness Time Seen by Provider: 08/14/22 17:15 Physician History: Patient is here with muscle pain, spasms since last night. No falls or other trauma. Patient states that she has pain in her thighs bilaterally, calves bilaterally, upper extremities. No other neuro defects. Patient has no numbness weakness, tingling. Patient states that she has this happen when she has low potassium sometimes. Patient also complains of some left-sided chest pain (VALERY CHACKO) Allergies/Adverse Reactions: morphine Allergy (Intermediate, Verified 08/14/22 17:16) Hives Penicillins Allergy (Mild, Verified 08/14/22 17:16) Hives Sulfa (Sulfonamide Antibiotics) Allergy (Mild, Verified 08/14/22 17:16) Hives metaproterenol [From Alupent] Allergy (Verified 08/14/22 17:16) sulfamethoxazole [From Septra] Allergy (Verified 08/14/22 17:16) tetracycline Allergy (Verified 08/14/22 17:16) tolbutamide [From Orinase] Allergy (Verified 08/14/22 17:16) trimethoprim [From Septra] Allergy (Verified 08/14/22 17:16) Home Medications: Aspirin EC 325 mg [Ecotrin 325 MG] 1 tab PO DAILY 08/14/22 [History] Furosemide [Lasix] 1 tab PO DAILY 08/14/22 [History] Levothyroxine Sodium 1 tab PO DAILY 08/14/22 [History] Potassium Chloride 1 cap PO BID 08/14/22 [History] Travel Risk - International Travel Have you traveled outside of the country in past 3 weeks: No - Coronavirus Screening Are you exhibiting any of the following symptoms?: No - Vaccine Status Have you recieved a Covid-19 vaccination: Yes Securities Underwriter: Moderna - Vaccination Dates Date of 2cond Vaccination (if applicable): 2020 <VALERY CHACKO - Last Filed: 08/14/22 19:13> - Review of Systems Constitutional: No Fever, No Chills Eyes: No Symptoms Ears, Nose, & Throat: No Symptoms Respiratory: No Cough, No Dyspnea Cardiac: No Chest Pain, No Edema, No Syncope Abdominal/Gastrointestinal: No Abdominal Pain, No Nausea, No Vomiting, No Diarrhea Genitourinary Symptoms: No Dysuria Musculoskeletal: No Back Pain, No Neck Pain Skin: No Rash Neurological: No Dizziness, No Focal Weakness, No Sensory Changes Psychological: No Symptoms Endocrine: No Symptoms All Other Systems: Reviewed and Negative <VALERY CHACKO - Last Filed: 08/14/22 19:13> - Past Medical History Pertinent Past Medical History: Yes Neurological History: Migraines, Stroke ENT History: No Pertinent History Cardiac History: High Cholesterol, Hypertension, Myocardial Infarction (MS) Respiratory History: Asthma, Other Endocrine Medical History: Hypothyroidism, Other Musculoskeletal History: Osteoarthritis, Rheumatoid Arthritis GI Medical History: Diverticulitis, Polyps History: No Pertinent History Psycho-Social History: No Pertinent History Female Reproductive Disorders: Endometriosis, Other Other Medical History: L4-5 disc herniation, kidney stones, hypokalemia - Past Surgical History Past Surgical History: Yes Neuro Surgical History: No Pertinent History Cardiac: No Pertinent History Respiratory: No Pertinent History Gastrointestinal: Appendectomy Genitourinary: No Pertinent History Musculoskeletal: No Pertinent History Female Surgical History: Hysterectomy, Section Other Surgical History: 3 C-Sections - Social History Smoking Status: Current every day smoker How long have you smoked: 25 Exposure to second hand smoke: Yes Drug Use: none Patient Lives Alone: No <VALERY CHACKO - Last Filed: 08/14/22 19:13> - Physical Exam General Appearance: no apparent distress, alert Eye Exam: PERRL/EOMI, eyes nml inspection Ears, Nose, Throat Exam: normal ENT inspection, TMs normal, pharynx normal, moist mucous membranes Neck Exam: normal inspection, non-tender, supple, full range of motion Respiratory Exam: normal breath sounds, lungs clear, No respiratory distress Cardiovascular Exam: regular rate/rhythm, normal heart sounds, normal peripheral pulses Gastrointestinal/Abdomen Exam: soft, normal bowel sounds, No tenderness, No mass Back Exam: normal inspection, normal range of motion, No CVA tenderness, No vertebral tenderness Extremity Exam: normal inspection, normal range of motion, pelvis stable Neurologic Exam: alert, oriented x 3, cooperative, normal mood/affect, nml cerebellar function, nml station & gait, sensation nml, No motor deficits Skin Exam: normal color, warm, dry, No rash Lymphatic Exam: No adenopathy SpO2: 98 <VALERY CHACKO - Last Filed: 08/14/22 19:13> - Nursing Vital Signs Nursing Vital Signs: Initial Vital Signs Pulse Rate 91 H 08/14/22 17:13 Respiratory Rate 17 08/14/22 17:13 Blood Pressure 135/96 08/14/22 17:13 O2 Sat by Pulse Oximetry 96 08/14/22 17:13 Pain Scale Pain Intensity 0 - Course Nursing assessment & vital signs reviewed: Yes EKG Interpreted by Me: Sinus Rhythm (Sinus rhythm no EKG changes) <VALERY CHACKO - Last Filed: 08/14/22 19:13> - Radiology Exams Chest X-ray Interpretation: Reviewed by me, Teleradiologist Report, Negative - CT Exams Chest CT Interpretation: Tele-radiologist Report, No Fracture, No PE Abdomen CT Interpretation: Negative, Tele-radiologist Report <REJI NEW - Last Filed: 08/15/22 23:13> Ordered Tests: Medication Summary Discontinued Medications Generic Name Dose Route Start Last Admin Trade Name Freq PRN Reason Stop Dose Admin Acetaminophen 1,000 mg 08/14/22 17:28 08/14/22 17:55 Acetaminophen 500 Mg Tablet PO 08/14/22 17:29 1,000 mg STAT STA Administration Acetaminophen Confirm 08/14/22 17:49 Acetaminophen 500 Mg Tablet Administered 08/14/22 17:50 Dose 500 mg .ROUTE .STK-MED ONE Acetaminophen Confirm 08/14/22 17:56 Acetaminophen 500 Mg Tablet Administered 08/14/22 17:57 Dose 500 mg .ROUTE .STK-MED ONE Sodium Chloride 1,000 mls @ 999 mls/hr 08/14/22 17:25 08/14/22 18:55 Sodium Chloride 0.9% 1000 Ml IV 08/14/22 18:25 Infused .Q1H1M STA Infusion Sodium Chloride Confirm 08/14/22 17:49 Sodium Chloride 0.9% 1000 Ml Administered 08/14/22 17:50 Dose 1,000 mls @ ud .ROUTE .STK-MED ONE Ketorolac Tromethamine 30 mg 08/14/22 17:27 08/14/22 17:51 Ketorolac Tromethamine 30 Mg/Ml Inj IV 08/14/22 17:28 30 mg STAT ONE Administration Ketorolac Tromethamine Confirm 08/14/22 17:49 Ketorolac Tromethamine 30 Mg/Ml Inj Administered 08/14/22 17:50 Dose 30 mg .ROUTE .STK-MED ONE Ondansetron HCl 8 mg 08/14/22 17:28 08/14/22 17:51 Ondansetron Hcl 4 Mg/2 Ml Vial IV 08/14/22 17:29 8 mg STAT ONE Administration Ondansetron HCl Confirm 08/14/22 17:49 Ondansetron Hcl 4 Mg/2 Ml Vial Administered 08/14/22 17:50 Dose 8 mg .ROUTE .STK-MED ONE Tizanidine HCl 8 mg 08/14/22 22:17 08/14/22 22:39 Tizanidine Hcl 4 Mg Tablet PO 08/14/22 22:18 8 mg ONCE ONE Administration Lab/Rad Data: Laboratory Result Diagrams 08/14/22 17:40 08/14/22 17:40 Laboratory Results 08/14/22 08/14/22 08/14/22 Range/Units 21:29 17:40 17:40 WBC (4.0-10.5) x10^3/uL RBC (4.1-5.4) x10^6/uL Hgb (12.0-16.0) g/dL Hct (35-47) % MCV (78-100) fL MCH (26-32) pg MCHC (32-36) g/dL RDW (11.5-14.0) % Plt Count (150-450) x10^3/uL MPV (7.5-11.0) fL Gran % (36.0-66.0) % Immature Gran % (Auto) (0.00-0.4) % Nucleat RBC Rel Count (0.00-0.1) % Eos # (Auto) (0-0.5) x10^3/uL Immature Gran # (Auto) (0.00-0.03) x10^3u/L Absolute Lymphs (auto) (1.0-4.6) x10^3/uL Absolute Monos (auto) (0.0-1.3) x10^3/uL Absolute Nucleated RBC (0.00-0.01) x10^3u/L Lymphocytes % (24.0-44.0) % Monocytes % (0.0-12.0) % Eosinophils % (0.00-5.0) % Basophils % (0.0-0.4) % Absolute Granulocytes (1.4-6.9) x10^3/uL Basophils # (0-0.4) x10^3/uL D-Dimer (0.0-0.50) mg/L Sodium (137-145) mmol/L Potassium (3.5-5.1) mmol/L Chloride (98-107) mmol/L Carbon Dioxide (22-30) mmol/L Anion Gap (5-15) MEQ/L BUN (7-17) mg/dL Creatinine (0.52-1.04) mg/dL Estimated GFR ML/MIN Glucose (74-106) mg/dL Calcium (8.4-10.2) mg/dL Magnesium 2.3 (1.6-2.3) mg/dL Total Bilirubin (0.2-1.3) mg/dL AST (14-36) U/L ALT (0-35) U/L Alkaline Phosphatase (38-126) U/L Creatine Kinase (30-135) U/L Troponin I < 0.012 (0.000-0.034) ng/mL Serum Total Protein (6.3-8.2) g/dL Albumin (3.5-5.0) g/dL Lipase (23-300) U/L Urine Color Yellow (Yellow) Urine Appearance Clear (Clear) Urine pH 5.0 (4.6-8.0) Ur Specific [place] >=1.030 A (1.005-1.030) Urine Protein Trace A (Negative) Urine Glucose (UA) Negative (Negative) mg/dL Urine Ketones Negative (Negative) Urine Blood Negative (Negative) Urine Nitrite Negative (Negative) Urine Bilirubin Negative (Negative) Urine Urobilinogen 1.0 A (0.2) mg/dL Ur Leukocyte Esterase Negative (Negative) U Hyaline Cast (Auto) NONE SEEN (0-2) /LPF Urine Microscopic RBC 3-5 (0-5) /HPF Urine Microscopic WBC 0-2 (0-5) /HPF Ur Epithelial Cells None Seen (None Seen) /HPF Urine Bacteria None Seen (None Seen) /HPF Urine Culture Reflexed NO (NO) 08/14/22 08/14/22 08/14/22 Range/Units 17:40 17:40 17:40 WBC (4.0-10.5) x10^3/uL RBC (4.1-5.4) x10^6/uL Hgb (12.0-16.0) g/dL Hct (35-47) % MCV (78-100) fL MCH (26-32) pg MCHC (32-36) g/dL RDW (11.5-14.0) % Plt Count (150-450) x10^3/uL MPV (7.5-11.0) fL Gran % (36.0-66.0) % Immature Gran % (Auto) (0.00-0.4) % Nucleat RBC Rel Count (0.00-0.1) % Eos # (Auto) (0-0.5) x10^3/uL Immature Gran # (Auto) (0.00-0.03) x10^3u/L Absolute Lymphs (auto) (1.0-4.6) x10^3/uL Absolute Monos (auto) (0.0-1.3) x10^3/uL Absolute Nucleated RBC (0.00-0.01) x10^3u/L Lymphocytes % (24.0-44.0) % Monocytes % (0.0-12.0) % Eosinophils % (0.00-5.0) % Basophils % (0.0-0.4) % Absolute Granulocytes (1.4-6.9) x10^3/uL Basophils # (0-0.4) x10^3/uL D-Dimer 0.71 H* (0.0-0.50) mg/L Sodium 140 (137-145) mmol/L Potassium 4.0 (3.5-5.1) mmol/L Chloride 106 (98-107) mmol/L Carbon Dioxide 23 (22-30) mmol/L Anion Gap 15.1 H (5-15) MEQ/L BUN 15 (7-17) mg/dL Creatinine 0.92 (0.52-1.04) mg/dL Estimated GFR > 60.0 ML/MIN Glucose 182 H (74-106) mg/dL Calcium 9.4 (8.4-10.2) mg/dL Magnesium (1.6-2.3) mg/dL Total Bilirubin 0.40 (0.2-1.3) mg/dL AST 25 (14-36) U/L ALT 21 (0-35) U/L Alkaline Phosphatase 71 (38-126) U/L Creatine Kinase 82 (30-135) U/L Troponin I (0.000-0.034) ng/mL Serum Total Protein 7.8 (6.3-8.2) g/dL Albumin 4.5 (3.5-5.0) g/dL Lipase 51 (23-300) U/L Urine Color (Yellow) Urine Appearance (Clear) Urine pH (4.6-8.0) Ur Specific [place] (1.005-1.030) Urine Protein (Negative) Urine Glucose (UA) (Negative) mg/dL Urine Ketones (Negative) Urine Blood (Negative) Urine Nitrite (Negative) Urine Bilirubin (Negative) Urine Urobilinogen (0.2) mg/dL Ur Leukocyte Esterase (Negative) U Hyaline Cast (Auto) (0-2) /LPF Urine Microscopic RBC (0-5) /HPF Urine Microscopic WBC (0-5) /HPF Ur Epithelial Cells (None Seen) /HPF Urine Bacteria (None Seen) /HPF Urine Culture Reflexed (NO) 08/14/22 08/14/22 Range/Units 17:40 09:30 WBC 7.5 (4.0-10.5) x10^3/uL RBC 4.71 (4.1-5.4) x10^6/uL Hgb 14.8 (12.0-16.0) g/dL Hct 44.4 (35-47) % MCV 94.3 (78-100) fL MCH 31.4 (26-32) pg MCHC 33.3 (32-36) g/dL RDW 13.8 (11.5-14.0) % Plt Count 324 (150-450) x10^3/uL MPV 9.3 (7.5-11.0) fL Gran % 53.9 (36.0-66.0) % Immature Gran % (Auto) 0.4 (0.00-0.4) % Nucleat RBC Rel Count 0.0 (0.00-0.1) % Eos # (Auto) 0.28 (0-0.5) x10^3/uL Immature Gran # (Auto) 0.03 (0.00-0.03) x10^3u/L Absolute Lymphs (auto) 2.62 (1.0-4.6) x10^3/uL Absolute Monos (auto) 0.46 (0.0-1.3) x10^3/uL Absolute Nucleated RBC 0.00 (0.00-0.01) x10^3u/L Lymphocytes % 35.2 (24.0-44.0) % Monocytes % 6.2 (0.0-12.0) % Eosinophils % 3.8 (0.00-5.0) % Basophils % 0.5 (0.0-0.4) % Absolute Granulocytes 4.02 (1.4-6.9) x10^3/uL Basophils # 0.04 (0-0.4) x10^3/uL D-Dimer (0.0-0.50) mg/L Sodium (137-145) mmol/L Potassium (3.5-5.1) mmol/L Chloride (98-107) mmol/L Carbon Dioxide (22-30) mmol/L Anion Gap (5-15) MEQ/L BUN (7-17) mg/dL Creatinine (0.52-1.04) mg/dL Estimated GFR ML/MIN Glucose (74-106) mg/dL Calcium (8.4-10.2) mg/dL Magnesium (1.6-2.3) mg/dL Total Bilirubin (0.2-1.3) mg/dL AST (14-36) U/L ALT (0-35) U/L Alkaline Phosphatase (38-126) U/L Creatine Kinase (30-135) U/L Troponin I < 0.012 (0.000-0.034) ng/mL Serum Total Protein (6.3-8.2) g/dL Albumin (3.5-5.0) g/dL Lipase (23-300) U/L Urine Color (Yellow) Urine Appearance (Clear) Urine pH (4.6-8.0) Ur Specific [place] (1.005-1.030) Urine Protein (Negative) Urine Glucose (UA) (Negative) mg/dL Urine Ketones (Negative) Urine Blood (Negative) Urine Nitrite (Negative) Urine Bilirubin (Negative) Urine Urobilinogen (0.2) mg/dL Ur Leukocyte Esterase (Negative) U Hyaline Cast (Auto) (0-2) /LPF Urine Microscopic RBC (0-5) /HPF Urine Microscopic WBC (0-5) /HPF Ur Epithelial Cells (None Seen) /HPF Urine Bacteria (None Seen) /HPF Urine Culture Reflexed (NO) - Progress Progress: improved <VALERY CHACKO - Last Filed: 08/14/22 19:13> - Progress Counseled pt/family regarding: lab results, diagnosis, need for follow-up, rad results <REJI NEW - Last Filed: 08/15/22 23:13> - Progress Progress Note: 08/14/22 19:15 differential diagnosis includes: PNA, STEMI, NSTEMI, other infection, musculoskeletal pain, pneumothorax - We'll obtain basic labs, fluids, EKG, troponin, chest x-ray - I feel comfortable with one time negative troponin given symptoms have improved and started greater then 6 hours ago. - EKG shows no ST changes - my read. See full read below. - O2 saturations consistently greater than 95%. - CXR shows no pneumonia, pneumothorax - my read D-dimer is elevated. Therefore we will obtain a CTA. Have otherwise been unremarkable. Patient feeling somewhat improved. Dr. Reji New follow-up on results and reexamine patient. Ultimate disposition per reexam and imaging and lab results. (VALERY CHACKO) Labs and imaging unremarkable. Tizanidine given to patient w/ good improvement. Also encouraged patient to drink pickle juice to help w/ cramping. I stressed the importance of physical activity to help improve these symptoms. I will send a script of Tizanadine home w/ patient. (REJI NEW) Medical Desision Making - Diagnostic Testing Diagnostic test were ordered, analyzed, and reviewed by me: Yes Radiological Interpretation: Reviewed by me, Teleradiologist Report - Risk of complications The pt has a mod risk of morbidity or mortality based on: Need for prescription drug management <REJI NEW - Last Filed: 08/15/22 23:13> - Departure Critical Care Time: No <VALERY CHACKO - Last Filed: 08/14/22 19:13> - Departure Departure Disposition: Home <REJI NEW - Last Filed: 08/15/22 23:13> - Departure Clinical Impression: Muscle pain, Muscle spasm, Muscular deconditioning Condition: Stable Referrals: AGUSTINA ANGULO MD [Primary Care Provider] - Follow up/PCP as directed Instructions: Muscle Spasms (DC) Prescriptions: Tizanidine HCl 4 mg PO TID PRN #21 cap PRN Reason: Muscle Spasms
--- NOTE | 2022-08-14 20:03 | XRAY ---
CLINICAL HISTORY:Left chest/left arm pain, elevated D-dimers; COMPARISON:None; TECHNIQUES:Contiguous, multislice, post intravenous contrast [80 cc of Isovue 370] CT scan of the abdomen and pelvis in the axial plane with multiplanar reconstructions. Total DLP-2538.3; CTDI-76.43; FINDINGS: Enlarged liver measuring about 22 cm in craniocaudal axis showing homogeneous attenuation with no obvious focal mass lesion. No intrahepatic biliary dilatation. Normal-sized portal vein and CBD. Partially contracted gallbladder showing no definite calculus inside. Pancreas and spleen appear unremarkable. No adrenal or retroperitoneal masses. Both kidneys appear normal in sizes, shows normal postcontrast enhancement and excretion. No calculus, mass or hydronephrosis in either kidneys. Small defect seen in the anterior abdominal wall approximately 2 cm below the umbilical region representing anterior abdominal wall hernia. Noncomplicated colonic diverticulosis involving sigmoid and descending colon without evidence of diverticulitis. No bowel dilatation. No ascites. No para-aortic lymphadenopathy. Adequately failed urinary bladder, appear free from intraluminal stones, mass or diverticular outpouching. Uterus is surgically removed. No adnexal mass. Degenerative changes in the visualized spine. IMPRESSION: Hepatomegaly. Noncomplicated colonic diverticulosis involving sigmoid and descending colon without evidence of diverticulitis. Small defect in the anterior abdominal wall measuring about 5 mm approximately 2 cm below the umbilical region representing anterior abdominal wall hernia. Rest of the findings as detailed above. Electronically Signed by: Luis Storey MD. (08/14/2022 18:54:06 AGENCY DIRECTOR)
--- NOTE | 2022-08-14 20:19 | XRAY ---
CLINICAL HISTORY:elevated dimer; COMPARISON:None; TECHNIQUES:Contiguous, multislice, post intravenous contrast [80 cc of Isovue 370] CT scan of the Chest in the axial plane with multiplanar reconstructions. Total DLP-2538.3; CTDI-76.43; FINDINGS: Main pulmonary segment, right and left main branches show normal diameter and homogeneous contrast enhancement with no evidence of pulmonary embolism or thrombosis. Normal contrast opacification of proximal and visualized distal branches of lobar pulmonary arteries. No pulmonary infarcts or pleural collection. No lobar consolidation or collapse. No suspicious pulmonary mass lesion seen. No enlarged hilar or mediastinal lymphadenopathy. Chest wall has no cystic or solid mass. IMPRESSION: Unremarkable CT angiography with no definite pulmonary embolism. Grossly unremarkable CT chest study. Electronically Signed by: Luis Storey MD. (08/14/2022 19:10:44 [employer] CREW SUPERVISOR)
[2022-08-14 22:07] VITALS: BP 113/53; PULSE 70; O2SAT 96
[2022-08-14] MEDS ORDERED: Zanaflex 4 MG PO ONE (22:17)
[2022-08-14 22:19] LABS: Appearance Clear (Clear); Bacteria None Seen /HPF (None Seen); Bilirubin Negative (Negative); Blood Negative (Negative); Epithelial Cells None Seen /HPF (None Seen); Glucose, Urine Negative (Negative); Hyaline Casts NONE SEEN /LPF (0-2); Ketones Negative (Negative); Leukocyte Esterase Negative (Negative); Nitrite Negative (Negative); Protein,Urine Dip Trace (Negative); Specific Gravity >=1.030 (1.005-1.030); WBC 0-2 /HPF (0-5)
[2022-08-14 22:23] LABS: ADD URINE CULTURE? NO (NO)
--- NOTE | 2022-08-15 08:33 | XRAY ---
Indication: Left chest pain. Comparison: May 18, 2017 PA/lateral chest hyperinflated and clear appear heart is not enlarged. Bony thorax intact with osteopenia, mild degenerative changes, and old right humeral 5 rib fracture. Impression: Continued nonacute chest with chronic bony findings.
== END 2022-08-14 22:58 | disposition home or self-care (01) ==
LOC: ED 16:42
DX: M62.838 Other muscle spasm (principal); M62.81 Muscle weakness (generalized); M79.601 Pain in right arm; M79.602 Pain in left arm; M79.604 Pain in right leg; M79.605 Pain in left leg; R07.9 Chest pain, unspecified; E78.5 Hyperlipidemia, unspecified; I10 Essential (primary) hypertension; Z79.899 Other long term (current) drug therapy; Z72.0 Tobacco use
CPT/HCPCS: 36000; 36415; 71046; 71260; 74177; 80053; 81001; 82550; 83690; 83735; 84484; 85025; 85379; 93005; 93041; 96360; 96374; 96375; 99284; J1885; J2405; A9270-GY

== ENCOUNTER 2023-03-06 11:22 | Emergency (ER) | payer OTHER ==
[2023-03-06 11:54] VITALS: PULSE 86; TEMP 97.1
--- NOTE | 2023-03-06 12:10 | ERPHSYRPT ---
- History of Present Illness Source: patient Exam Limitations: no limitations Patient Subjective Stated Complaint: Pt was taking the trash out and fell on the handicap ramp and injured her right wrist Triage Nursing Assessment: Pt was brought to the ER by a friend, hypertensive, rates pain as a f/10 while not moving but a 10/10 when moving, pulses normal, medial side of hand is begining to bruise, states that the pain goes all the way up to her elbow, hit the back of her head and is on baby aspirin, denies any other injury Physician History: Patient is a 62-year-old female who slipped on a handicap ramp at her house this morning due to redman subsequently injuring her right hand and wrist. Patient also hit her head and was dazed, but she denies any loss conscious. She denies any cervical pain but has a mild thoracic spine pain. Patient denies any chest pain, abdominal pain, hip pain, or lower extremity pain. She took ibuprofen and Tylenol before coming to the ER and currently refuses any pain medication. Patient is on an aspirin a day but does not take any anticoagulants. Occurred: just prior to arrival Reason for Fall: slipped (Patient slipped on [place] on a handicap ramp at her house) Injuries/Pain Location: head, upper extremity (Right hand and wrist), back Loss of Consciousness: no loss of consciousness, dazed Quality: aching Severity of Pain-Max: moderate Severity of Pain-Current: moderate Modifying Factors: Improves With: movement Associated Symptoms (Fall): extremity injury, headache Allergies/Adverse Reactions: morphine Allergy (Intermediate, Verified 03/06/23 11:54) Hives Penicillins Allergy (Mild, Verified 03/06/23 11:54) Hives Sulfa (Sulfonamide Antibiotics) Allergy (Mild, Verified 03/06/23 11:54) Hives metaproterenol [From Alupent] Allergy (Verified 03/06/23 11:54) sulfamethoxazole [From Septra] Allergy (Verified 03/06/23 11:54) tetracycline Allergy (Verified 03/06/23 11:54) tolbutamide [From Orinase] Allergy (Verified 03/06/23 11:54) trimethoprim [From Septra] Allergy (Verified 03/06/23 11:54) Home Medications: Aspirin EC 325 mg [Ecotrin 325 MG] 1 tab PO DAILY 08/14/22 [History] Furosemide [Lasix] 1 tab PO DAILY 08/14/22 [History] Levothyroxine Sodium 1 tab PO DAILY 08/14/22 [History] Potassium Chloride 1 cap PO BID 08/14/22 [History] Carvedilol 3.125 mg [Coreg 3.125 MG] 3.125 mg PO DAILY 03/06/23 [History] Hx Tetanus, Diphtheria Vaccination/Date Given: Yes Hx Influenza Vaccination/Date Given: No Hx Pneumococcal Vaccination/Date Given: No Travel Risk - International Travel Have you traveled outside of the country in past 3 weeks: No - Coronavirus Screening Are you exhibiting any of the following symptoms?: No Close contact with a COVID-19 positive Pt in past 14-21 Days: No - Vaccine Status Have you recieved a Covid-19 vaccination: Yes 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[employer] - Vaccination Dates Date of 2cond Vaccination (if applicable): 2020 - Review of Systems Constitutional: No Symptoms Eyes: No Symptoms Ears, Nose, & Throat: No Symptoms Respiratory: No Symptoms Cardiac: No Symptoms Abdominal/Gastrointestinal: No Symptoms Genitourinary Symptoms: No Symptoms Skin: No Symptoms Neurological: No Symptoms, Headache Psychological: No Symptoms Endocrine: No Symptoms Hematologic/Lymphatic: No Symptoms Immunological/Allergic: No Symptoms - Past Medical History Pertinent Past Medical History: Yes Neurological History: Migraines, Stroke ENT History: No Pertinent History Cardiac History: High Cholesterol, Hypertension, Myocardial Infarction ([place]) Respiratory History: Asthma, Other Endocrine Medical History: Hypothyroidism, Other Musculoskeletal History: Osteoarthritis, Rheumatoid Arthritis GI Medical History: Diverticulitis, Polyps History: No Pertinent History Psycho-Social History: No Pertinent History Female Reproductive Disorders: Endometriosis, Other Other Medical History: L4-5 disc herniation, kidney stones, hypokalemia - Past Surgical History Past Surgical History: Yes Neuro Surgical History: No Pertinent History Cardiac: No Pertinent History Respiratory: No Pertinent History Gastrointestinal: Appendectomy Genitourinary: No Pertinent History Musculoskeletal: No Pertinent History Female Surgical History: Hysterectomy, Section Other Surgical History: 3 C-Sections - Social History Smoking Status: Current every day smoker How long have you smoked: 25 Exposure to second hand smoke: Yes Drug Use: none Patient Lives Alone: No - Nursing Vital Signs Nursing Vital Signs: Initial Vital Signs Temperature 97.1 F 03/06/23 11:46 Pulse Rate 86 03/06/23 11:46 Blood Pressure 152/96 03/06/23 11:46 O2 Sat by Pulse Oximetry 98 03/06/23 11:46 Pain Scale Pain Intensity 8 Hypertensive. - Vaiden Coma Score Best Eye Response (Vaiden): (4) open spontaneously Best Verbal Response (Vaiden): (5) oriented Best Motor Response (Araceli): (6) obeys commands Araceli Total: 15 - Physical Exam General Appearance: no apparent distress Head Injury: no evidence of injury (Mild occiput tenderness to palpation without any palpable deformity or edema) Eye Exam: PERRL/EOMI, eyes nml inspection ENT Exam: airway nml (No otorrhea or rhinorrhea noted.) Neck Exam: supple (C-spine nontender to palpation) Respiratory/Chest Exam: normal breath sounds (Good bilateral breath sounds bilaterally/thorax nontender to palpation/mid T-spine tenderness palpation mildly.) Cardiovascular Exam: normal heart sounds (Regular rate rhythm without heaves, gallops, murmurs, or rubs.) Gastrointestinal Exam: soft (Soft, nontender to palpation) Back Exam: normal inspection (Mid T-spine mildly tender to palpation no L-spine tenderness palpation) Extremity Exam: other (Right ulnar hand and wrist moderately tender to is to palpation with mild edema/good radial pulse, distal sensation, and capillary return.) Peripheral Pulses: carotid (R): 2+, carotid (L): 2+ Neurologic Exam: alert, oriented x 3, cooperative, 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 tested, normal mood/affect, sensation nml, No motor deficits, No sensory deficit Skin Exam: normal color, warm, dry SpO2 Interpretation: normal SpO2: 98 O2 Delivery: Room Air Procedures - Splinting Location of Splint: Right, Hand, Wrist Type of Splint: Orthoglass Short Arm Splint Splint Applied By: ED Physician Pre-Proc Neuro Vasc Exam: normal Post-Proc Neuro Vasc Exam: neurovascular intact - Course Nursing assessment & vital signs reviewed: Yes - Radiology Exams Hand X-ray Interpretation: Reviewed by me, Teleradiologist Report (Possible triquetal fx) Wrist X-ray Interpretation: Reviewed by me (Possible Triquetal fx), Teleradiologist Report - CT Exams Head CT Interpretation: Tele-radiologist Report (Sinusitis nothing acute) Thoracic Spine CT Interpretation: Tele-radiologist Report (Old T10 compression fracture otherwise negative) Upper Extremity CT Interpretation: Tele-radiologist Report (Right triquetral avulsion fracture.) Ordered Tests: Active Orders 24 hr Category Date Time Status HAND (MINIMUM 3 VIEWS) Stat Exams 03/06/23 11:59 Completed HEAD WITHOUT CONTRAST [CT] Stat Exams 03/06/23 11:58 Completed THORACIC SPINE W/O CONTRAST [CT] Stat Exams 03/06/23 11:58 Completed UPPER EXTREMITY W/O CONTRAST [CT] Stat Exams 03/06/23 13:37 Completed WRIST (MIN 3 VIEWS) Stat Exams 03/06/23 11:59 Completed Medication Summary Discontinued Medications Generic Name Dose Route Start Last Admin Trade Name Freq PRN Reason Stop Dose Admin Ketorolac Tromethamine 30 mg 03/06/23 13:44 03/06/23 13:47 Ketorolac Tromethamine 30 Mg/Ml Inj IM 03/06/23 13:45 30 mg STAT ONE Administration Ketorolac Tromethamine Confirm 03/06/23 13:46 Ketorolac Tromethamine 30 Mg/Ml Inj Administered 03/06/23 13:47 Dose 30 mg .ROUTE .STK-MED ONE - Progress Progress: improved Progress Note: 03/06/23 16:04 Nursing note and vital signs reviewed. No food or housing insecurities noted. All x-ray results reviewed and shared with patient. All CT results reviewed and shared with patient. Right upper extremity volar Ortho-Glass splint/short arm/per ER physici an/neurovascular intact 03/06/23 16:05 30 mg IM Toradol with improvement in pain. Patient initially refused all pain meds. Patient with sinusitis on CT scan of head and is currently on Levaquin. Counseled pt/family regarding: diagnosis, need for follow-up, rad results Medical Desision Making - Independent Historian Additional History obtained from: Spouse - Diagnostic Testing Radiological Interpretation: Reviewed by me, Teleradiologist Report - Risk of complications The pt has a mod risk of morbidity or mortality based on: Need for prescription drug management - Departure Departure Disposition: Home Clinical Impression: Right hand fracture, Minor closed head injury, Chronic sinusitis, Strain of thoracic spine Condition: Stable Critical Care Time: No Referrals: AGUSTINA ANGULO MD [Primary Care Provider] - Follow up/PCP as directed Instructions: Hand Fracture (DC), Concussion in adults, Minor Head Injury (DC) Additional Instructions: Ice for 12 to 24 hours. Follow-up in orthopedic clinic Monday through Monday 8 to 10 AM. Monroe as needed for pain. Please use a stool softener with [place]. Return to ER for any new signs or symptoms. Prescriptions: Hydrocodone/Acetaminophen [Hydrocodone-Acetamin 5-325 mg] 1 each PO Q4HPRN PRN #7 tablet MDD 4 tabs PRN Reason: Pain
--- NOTE | 2023-03-06 13:00 | XRAY ---
CLINICAL HISTORY:Trauma COMPARISON:None. TECHNIQUE:Multiple axial slices with coronal and sagittal reformatting of CT scan brain without contrast have been submitted for interpretation. FINDINGS: No definite intracranial hemorrhage, mass-effect or midline shift is noted. Mild generalized age-related brain involutional changes are noted with proportionately dilated ventricles and sulci. Few hypodensities are noted in bilateral periventricular white matter, likely representing chronic microvascular ischemic changes. Well-defined rounded fluid density is noted along the posterior limb of right internal capsule measuring 0.5 cm in larger AP diameter, likely representing an old lacunar infarct. Goodwin-white matter differentiation is grossly intact. Sulci and cataract symmetrical. Basal ganglia and thalami appear unremarkable. Brainstem, cerebellum rest of the posterior fossa structures show no significant abnormality. Mucosal thickening is noted in bilateral maxillary and ethmoid sinuses along with right sphenoid sinus. Hyperdense areas are noted in the mucosal thickening in the right axillary sinus and may represent inspissated secretions or less likely superimposed fungal infection. Bilateral frontal sinuses are clear. Mastoid air cells are well aerated. Mild leftward deviated nasal septum is noted. Globes are intact. Soft tissues of the skull base and scalp region show no significant abnormality. Skull and visualized maxillofacial osseous structures are intact. IMPRESSION: 1. No acute intracranial abnormality noted. 2. Mild generalized age-related brain involutional changes seen. 3. Mild chronic microvascular ischemic changes noted. 4. Bilateral maxillary, ethmoid and right sphenoid sinusitis along with hyperdensities within the mucosal thickening of right maxillary sinus, likely representing inspissated secretions, less likely superimposed fungal infection. Clinical correlation is advised. 5. Details as above. Electronically Signed by: Luis Storey MD. (03/06/2023 12:55:07 EST)
--- NOTE | 2023-03-06 13:08 | XRAY ---
CLINICAL HISTORY:hand COMPARISON:None TECHNIQUE:X-ray right hand PA, oblique and lateral 3 views. FINDINGS: A tiny osseous fragment is seen related to the triquetral bone in the posterior wrist at the lateral view. No acute hand fracture or dislocation. The intercarpal, carpometacarpal, metacarpophalangeal and interphalangeal joints are well maintained. Bone density is within normal limits. Cortical margins and trabecular markings of the osseous structures are unremarkable. IMPRESSION: A tiny osseous fragment is seen at the triquetral bone in the posterior wrist at the lateral view, requires clinical correlation with the point of maximum tenderness and may represent a chip fracture/avulsed fracture fragment. DISCLAIMER:A subtle bone abnormality or fracture may not be readily apparent on x-rays, thus clinical correlation and further imaging including follow up CT, MRI, or follow up x-rays are advised as needed. Electronically Signed by: Luis Storey MD. (03/06/2023 13:03:52 EST)
--- NOTE | 2023-03-06 13:10 | XRAY ---
CLINICAL HISTORY:Trauma COMPARISON:None TECHNIQUE:X-ray of right wrist; PA, oblique and lateral views. FINDINGS: A tiny osseous fragment is seen posterior to the wrist impressive of triquetral fracture. Normal bone mineralization. Radiological examination of wrist demonstrates no focal bony lesion. No bone erosion noted. Cortical margins of the osseous structures are within normal limits. Articular margins are intact. Normal radiocarpal space and carpometacarpal joint spaces. Soft tissues appear unremarkable. IMPRESSION: A tiny osseous fragment is seen posterior to the wrist impressive of right triquetral fracture, requires clinical correlation with point of maximum tenderness and may represent a tiny chip fracture/levels fracture fragment. DISCLAIMER:A subtle bone abnormality or fracture may not be readily apparent on x-rays, thus clinical correlation and further imaging including follow up CT, MRI, or follow up x-rays are advised as needed. Electronically Signed by: Luis Storey MD. (03/06/2023 13:06:09 EST)
--- NOTE | 2023-03-06 13:16 | XRAY ---
CLINICAL HISTORY:Trauma COMPARISON:None. TECHNIQUE:Multiple axial slices with coronal and sagittal reformatting from CT scan thoracic spine without contrast have been submitted for interpretation. FINDINGS: Generalized decreased bone density is noted. Thoracic kyphosis is maintained. Mild rightward tilt is noted in the spinal curvature, may be positional. Mild anterior wedging of T10 vertebral body is noted. Vertebral body heights and intervertebral disc spaces are relatively preserved. No definite acute fracture or listhesis is noted. No lytic or sclerotic lesion is identified. Multilevel marginal osteophytes are noted, more marked along the anterior margin. Pre-and paravertebral soft tissues are intact. Spinal canal throughout the thoracic spine appears patent. Tiny calcification/nonobstructing calculus is noted at the upper pole of visualized portion of left kidney. Rest of the visualized regional osseous structures and surrounding soft tissues are intact. IMPRESSION: 1. No definite acute fracture or listhesis is seen. 2. Generalized osteopenia noted. 3. Mild anterior wedging of T10 vertebral body noted, likely chronic. 4. Thoracic spondylosis. Electronically Signed by: Luis Storey MD. (03/06/2023 13:12:36 EST)
[2023-03-06] MEDS ORDERED: TORAdol 30 mg Injection IM ONE (13:44)
[2023-03-06] MEDS ORDERED: TORAdol 30 mg Injection ONE (13:46)
[2023-03-06 14:03] VITALS: BP 117/63
--- NOTE | 2023-03-06 15:48 | XRAY ---
CLINICAL HISTORY:R wrist/Abnormal XR COMPARISON:None. TECHNIQUE:CT of limited right upper extremity was performed without contrast. Coronal and sagittal reconstructions were also obtained. FINDINGS: Evidence of an avulsion fracture noted at dorsal aspect of the right wrist, avulsed from the dorsal aspect of the triquetral bone. Rest of the carpal bones are unremarkable. Inter carpal joints and radio carpal joints are preserved. Soft tissue haze noted around the fracture site. IMPRESSION: Evidence of an avulsion fracture noted at dorsal aspect of right wrist, avulsed from the dorsal aspect of the triquetral bone. [facility] ER was called at [phone] at 3:39 PM EST, and Dr. Trevino was informed about Significant Medical Findings. Electronically Signed by: Luis Storey MD. (03/06/2023 15:44:36 EST)
[2023-03-06 16:06] VITALS: O2SAT 98
== END 2023-03-06 16:32 | disposition home or self-care (01) ==
LOC: ED 11:22
DX: S62.111A Displaced fracture of triquetrum [cuneiform] bone, right wrist, initial encounter for closed fracture (principal); S09.90XA Unspecified injury of head, initial encounter; S29.012A Strain of muscle and tendon of back wall of thorax, initial encounter; W10.2XXA Fall (on)(from) incline, initial encounter; Y92.007 Garden or yard of unspecified non-institutional (private) residence as the place of occurrence of the external cause; M79.641 Pain in right hand; E78.5 Hyperlipidemia, unspecified; I10 Essential (primary) hypertension; Z79.891 Long term (current) use of opiate analgesic; Z79.899 Other long term (current) drug therapy; Z72.0 Tobacco use
CPT/HCPCS: 70450; 72128; 73110; 73130; 73200; 96372; 99284; J1885

== ENCOUNTER 2023-06-23 12:15 | Emergency (ER) | payer OTHER ==
--- NOTE | 2023-06-23 12:23 | ERPHSYRPT ---
- History of Present Illness Time Seen by Provider: 06/23/23 12:22 Source: patient, family Exam Limitations: no limitations Physician History: This is a morbidly obese 62-year-old white female patient who presents with fever and headache. Patient was diagnosed with COVID-19 infection approximately 12 days ago. Patient states that her headache in the right back of her head began yesterday and was worse today. Patient took Tylenol at 930 this morning without benefit. She denies chest pain. She denies shortness of breath. She is a daily smoker cigarettes. She denies head injury. Patient has a history of hypertension. Her systolic blood pressure at this time is in the 130s. She has a history of hypothyroidism, migraine headaches, CVA and hyperlipidemia. Timing/Duration: yesterday Fever Severity: moderate Fever Therapy BAND SEWER: Acetaminophen Associated Symptoms: headache (Right posterior headache), No abdominal pain, No chest pain, No cough, No shortness of breath, No sore throat, No stiff neck Allergies/Adverse Reactions: morphine Allergy (Intermediate, Verified 06/23/23 12:39) Hives Penicillins Allergy (Mild, Verified 06/23/23 12:39) Hives Sulfa (Sulfonamide Antibiotics) Allergy (Mild, Verified 06/23/23 12:39) Hives metaproterenol [From Alupent] Allergy (Verified 06/23/23 12:39) sulfamethoxazole [From Septra] Allergy (Verified 06/23/23 12:39) tetracycline Allergy (Verified 06/23/23 12:39) tolbutamide [From Orinase] Allergy (Verified 06/23/23 12:39) trimethoprim [From Septra] Allergy (Verified 06/23/23 12:39) Home Medications: Aspirin EC 325 mg [Ecotrin 325 MG] 1 tab PO DAILY 08/14/22 [History] Furosemide [Lasix] 1 tab PO DAILY 08/14/22 [History] Levothyroxine Sodium 1 tab PO DAILY 08/14/22 [History] Potassium Chloride 1 cap PO BID 08/14/22 [History] Carvedilol 3.125 mg [Coreg 3.125 MG] 6.25 mg PO DAILY 03/06/23 [History] Hx Tetanus, Diphtheria Vaccination/Date Given: Yes Hx Influenza Vaccination/Date Given: No Hx Pneumococcal Vaccination/Date Given: No Travel Risk - International Travel Have you traveled outside of the country in past 3 weeks: No - Coronavirus Screening Are you exhibiting any of the following symptoms?: Yes Symptoms: Fever, Headaches/Body Aches/Fatigue - Vaccine Status Have you recieved a Covid-19 vaccination: Yes 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[employer] - Vaccination Dates Date of 2cond Vaccination (if applicable): 2020 - Review of Systems Constitutional: Fever Eyes: No Symptoms Ears, Nose, & Throat: No Symptoms Respiratory: No Symptoms Cardiac: No Symptoms Abdominal/Gastrointestinal: No Symptoms Genitourinary Symptoms: No Symptoms Musculoskeletal: No Symptoms Skin: No Symptoms Neurological: Headache Psychological: No Symptoms Endocrine: No Symptoms Hematologic/Lymphatic: No Symptoms Immunological/Allergic: No Symptoms All Other Systems: Reviewed and Negative - Past Medical History Pertinent Past Medical History: Yes Neurological History: Migraines, Stroke ENT History: No Pertinent History Cardiac History: High Cholesterol, Hypertension, Myocardial Infarction ([place]) Respiratory History: Asthma, Other Endocrine Medical History: Hypothyroidism, Other Musculoskeletal History: Osteoarthritis, Rheumatoid Arthritis GI Medical History: Diverticulitis, Polyps History: No Pertinent History Psycho-Social History: No Pertinent History Female Reproductive Disorders: Endometriosis, Other Other Medical History: L4-5 disc herniation, kidney stones, hypokalemia - Past Surgical History Past Surgical History: Yes Neuro Surgical History: No Pertinent History Cardiac: No Pertinent History Respiratory: No Pertinent History Gastrointestinal: Appendectomy Genitourinary: No Pertinent History Musculoskeletal: No Pertinent History Female Surgical History: Hysterectomy, Section Other Surgical History: 3 C-Sections - Social History Smoking Status: Current every day smoker How long have you smoked: 25 Exposure to second hand smoke: Yes Drug Use: none Patient Lives Alone: No - Nursing Vital Signs Nursing Vital Signs: Initial Vital Signs Pulse Rate 89 06/23/23 12:33 Respiratory Rate 21 06/23/23 12:33 Blood Pressure 164/90 06/23/23 12:33 O2 Sat by Pulse Oximetry 94 L 06/23/23 12:33 Pain Scale Pain Intensity 4 - Physical Exam General Appearance: no apparent distress, alert, anxiety, obese Eye Exam: PERRL/EOMI, eyes nml inspection ENT Exam: normal ENT inspection, no apparent trauma, hearing grossly normal Neck Exam: normal inspection, non-tender, supple, full range of motion, No tender midline, No Brudzinski's sign, No Kernig's sign, No meningismus Respiratory Exam: normal breath sounds, no respiratory distress, no accessory muscle use, No chest non-tender, No decreased breath sounds, No respiratory distress Cardiovascular/Chest Exam: normal heart sounds, regular rate/rhythm Gastrointestinal/Abdominal Exam: non tender Pelvic Exam: not done Rectal Exam: not done Extremity Exam: non-tender, normal range of motion, normal inspection Neurologic Exam: alert, oriented x 3, cooperative, hearing aid specialist II-XII nml as tested, normal mood/affect, nml cerebellar function, nml station & gait, sensation nml Skin Exam: normal color, warm, dry Lymphatic: No adenopathy SpO2 Interpretation: normal O2 Delivery: Room Air - Course Nursing assessment & vital signs reviewed: Yes Ordered Tests: Active Orders 24 hr Category Date Time Status CHEST 2 VIEWS (PA AND LAT) Stat Exams 06/23/23 13:36 Completed HEAD WITHOUT CONTRAST [CT] Stat Exams 06/23/23 13:23 Completed UA W/RFX UR CULTURE Stat Lab 06/23/23 15:07 Completed Lab/Rad Data: Laboratory Results 06/23/23 Range/Units 15:07 Urine Color Dark Yellow A (Yellow) Urine Appearance Clear (Clear) Urine pH 5.5 (4.6-8.0) Ur Specific [place] 1.025 (1.005-1.030) Urine Protein Negative (Negative) Urine Glucose (UA) Negative (Negative) mg/dL Urine Ketones Negative (Negative) Urine Blood Negative (Negative) Urine Nitrite Negative (Negative) Urine Bilirubin Negative (Negative) Urine Urobilinogen 1.0 A (0.2) mg/dL Ur Leukocyte Esterase Negative (Negative) U Hyaline Cast (Auto) NONE SEEN (0-2) /LPF Urine Microscopic RBC 3-5 (0-5) /HPF Urine Microscopic WBC 0-2 (0-5) /HPF Ur Epithelial Cells None Seen (None Seen) /HPF Urine Bacteria None Seen (None Seen) /HPF Urine Culture Reflexed NO (NO) - Progress Progress: improved, pain not gone completely, re-examined Progress Note: 06/23/23 13:35 This patient's medical issue is 1 of low complexity. The level complex in the workup performed is based on review of the patient's past medical history, review of the patient's medication list, review the patient drug allergy list, history present illness and physical findings on examination. The workup in this patient includes CT scan of the head, urinalysis and chest x-ray. 06/23/23 15:[address] scan of the head without contrast was interpreted by the radiologist. This study was compared to similar study performed on 03/06/2023. There is stable, remote lacunar infarct right internal capsule. There are no new, acute findings. 06/23/23 15:38 Chest x-ray was interpreted by the radiologist and I reviewed the impression. Present states nonacute chest with chronic features. Counseled pt/family regarding: lab results, diagnosis, need for follow-up, rad results Medical Desision Making - Independent Historian Additional History obtained from: Spouse - Diagnostic Testing Diagnostic test were ordered, analyzed, and reviewed by me: Yes Radiological Interpretation: Reviewed by me, Teleradiologist Report - Risk of complications Low Risk: Low risk of morbidity from additional dx testing or treatment - Departure Departure Disposition: Home Clinical Impression: Migraine headache Condition: Stable Critical Care Time: No Referrals: AGUSTINA ANGULO MD [Primary Care Provider] - Follow up/PCP as directed Additional Instructions: Take your medications as prescribed. Call your primary care provider today, 06/23/2023 to make arrangements for follow-up appointment next 5 to 7 days.
--- NOTE | 2023-06-23 14:03 | XRAY ---
Indication: Severe headache. Multiple contiguous axial images obtained through the head without contrast. Comparison: March 06, 2023 Again age-appropriate global atrophy and remote lacunar infarct posterior limb right internal capsule. No acute intracranial hemorrhage, abnormal extra-axial fluid collection, or mass effect. Fourth ventricle is midline without hydrocephalus. Goodwin-white matter differentiation preserved. Bony calvarium intact. Visualized paranasal sinuses and mastoid air cells are clear. Impression: Stable remote lacunar infarct right internal capsule. No new/acute intracranial abnormalities.
--- NOTE | 2023-06-23 14:05 | XRAY ---
Indication: Fever. Post Covid 19. Comparison: August 14, 2022 PA/lateral chest obtained. Lateral limited by respiration artifact. Again minimal left mid to lower lung fibrosis/scarring. No focal infiltrate, consolidation, or large effusion. Heart and mediastinal structures within normal limits. Bony thorax intact again with osteopenia, degenerative changes, and old right 5 rib fracture. Impression: Continued nonacute chest with chronic features.
[2023-06-23 15:10] VITALS: TEMP 99.1
[2023-06-23 15:25] LABS: Appearance Clear (Clear); Bacteria None Seen /HPF (None Seen); Bilirubin Negative (Negative); Blood Negative (Negative); Epithelial Cells None Seen /HPF (None Seen); Glucose, Urine Negative (Negative); Hyaline Casts NONE SEEN /LPF (0-2); Ketones Negative (Negative); Leukocyte Esterase Negative (Negative); Nitrite Negative (Negative); Ph 5.5 (4.6-8.0); Protein,Urine Dip Negative (Negative); Specific Gravity 1.025 (1.005-1.030); WBC 0-2 /HPF (0-5)
[2023-06-23 15:26] LABS: ADD URINE CULTURE? NO (NO)
[2023-06-23 15:39] LABS: INFLUENZA A NEGATIVE (NEGATIVE); INFLUENZA B NEGATIVE (NEGATIVE); RESPIRATORY SYNCTIAL VIRUS NEGATIVE (NEGATIVE); SARS-CoV-2 Xpert Express NEGATIVE (NEGATIVE)
[2023-06-23] MEDS ORDERED: BENADRYL 50 MG/ML ONE (15:43)
[2023-06-23] MEDS ORDERED: TORAdol 30 mg Injection ONE ×2 (15:43→15:47)
[2023-06-23] MEDS ORDERED: ZOFRAN ODT 4 MG ONE (15:43)
[2023-06-23] MEDS ORDERED: Hydromorphone 1 mg/ml Injection ONE (15:44)
[2023-06-23] MEDS: TORAdol 30 mg Injection IM ONE (15:45)
[2023-06-23] MEDS: Hydromorphone 1 mg/ml Injection IM ONE (15:45)
[2023-06-23] MEDS: ZOFRAN ODT 4 MG PO ONE (15:45)
[2023-06-23] MEDS: BENADRYL 50 MG/ML IM ONE (15:46)
[2023-06-23 16:09] VITALS: BP 122/64; PULSE 88; RESP 19; O2SAT 95
== END 2023-06-23 16:26 | disposition home or self-care (01) ==
LOC: ED 12:15
DX: G43.909 Migraine, unspecified, not intractable, without status migrainosus (principal); R59.0 Localized enlarged lymph nodes; R50.9 Fever, unspecified; I10 Essential (primary) hypertension; E78.5 Hyperlipidemia, unspecified; Z79.899 Other long term (current) drug therapy; Z72.0 Tobacco use
CPT/HCPCS: 0241U; 70450; 71046; 81001; 96372; 99284; J1170; J1200; J1885; Q0162

== ENCOUNTER 2023-07-31 10:50 | Day surgery (SDC) | payer OTHER ==
--- NOTE | 2023-07-31 10:48 | HP ---
PROCEDURE DATE: 07/31/2023 HISTORY OF PRESENT ILLNESS: Ms. Garcia is a 62 year-old female who is having enlarging, swollen, infected cysts left groin. Apparently, she had been seen in the ER at some point. See by Dr. Stack. She had had a week of Cephalexin back in June. Got really big. It had some spontaneous drainage last night. She was referred for this infected cyst. PAST MEDICAL HISTORY: She had concussion from a fall 20 years ago. She has had some sinus infections and rhinitis in the past. Hypertension. She had a little silent mild myocardial infarction years ago and had a heart cath following that, was okay according to the patient. Has had some basal cell carcinoma in the past. She had a history of stroke in the past. Hypothyroidism. Has had some anemia. She had some asthma in the past. CURRENT MEDICATIONS: Claritin, Lasix, potassium bicarbonate, levothyroxine, carvedilol. ALLERGIES: PENICILLIN, TETRACYCLINE, SULFA. PAST SURGICAL HISTORY: Has had appendectomy, , hysterectomy, and colonoscopies. History of removal of an ovary. Excision of basal cell carcinoma from the tenriism area in the past. FAMILY HISTORY: Negative with regards to this problem. SOCIAL HISTORY: Smoker. No alcohol abuse. REVIEW OF SYSTEMS: 12 systems reviewed. No chest pain or palpitations. Other systems negative or noncontributory other than above and per admission assessment. PHYSICAL EXAMINATION: Height 5' 3", BMI 34.9. GENERAL: No acute distress. HEENT: Sclerae nonicteric. Extraocular movements intact. Oral mucus membranes moist. NECK: No JVD. CHEST: Equal excursion. Nonlabored breathing. CVS: Regular rate and rhythm. ABDOMEN: Soft. She is overweight. EXTREMITIES: No cyanosis. Left groin area she has got an infected cyst site that had drained a little bit spontaneously. NEURO: Alert, moving extremities symmetrically. PSYCH: Appropriate mood and affect. SKIN: Overall dry. Other is this infected area in the left groin area as mentioned. IMPRESSION: 1. INFECTED LEFT GROIN CYST SITE. NEEDS EXCISIONAL BIOPSY AND DEBRIDEMENT WITH DRAINAGE OF ANY INFECTION UNDERNEATH WITH IRRIGATION, CULTURE, AND PACKING. Risks explained in detail of bleeding; ongoing infection; the fact that she would need packing afterward and need to be packed on a daily basis with normal saline wet-to-dry and healed by secondary intent; possible risk of worsening infection and might require other procedures or debridement; general risks of anesthesia, deep venous thrombosis, pulmonary embolism, or pneumonia, but not limited to. Otherwise, continue medications for hypertension and thyroid disease. Spoke with anesthesia. Given the degree of infection, this is an urgent case. The patient understands the cardiopulmonary risks, but worsening infections likely could cause more problems and draining the infection now before getting significantly worse. Consent obtained. Will proceed with excisional debridement and biopsy infected cyst left groin site.
[2023-07-31] MEDS ORDERED: Lactated Ringers 1,000 ML IV ONE (11:09)
[2023-07-31] MEDS: Lactated Ringers 1,000 ML IV SCH (11:14)
[2023-07-31] MEDS: CLINDAMYCIN-D5W 900 MG/50 ML*** 900 MG/50 ML BAG IV SCH (11:18)
[2023-07-31] MEDS: Pepcid 20 MG VIAL IV ONE (11:19)
[2023-07-31 11:21] VITALS: RESP 18
[2023-07-31] MEDS ORDERED: CEFAZOLIN 2 GM-D5W BAG** 2 GM/50 ML ML IV SCH (11:30)
[2023-07-31 11:38] LABS: Hematocrit 39.3 % (35-47); Hemoglobin 13.2 g/dL (12.0-16.0); Mean Cell Volume 92.9 fL (78-100); Mean Corpuscular Hemoglobin 31.2 pg (26-32); Mean Corpuscular Hgb Concent. 33.6 g/dL (32-36); Mean Platelet Volume 9.4 fL (7.5-11.0); Platelet Count 321 x10^3/uL (150-450); Red Blood Count 4.23 x10^6/uL (4.1-5.4); Red Cell Distribution Width 13.4 % (11.5-14.0); White Blood Count 7.9 x10^3/uL (4.0-10.5)
[2023-07-31 11:52] LABS: ANION GAP 9.7 MEQ/L (5-15); Calcium 9.1 mg/dL (8.4-10.2); Creatinine 1 0.76 mg/dL (0.52-1.04); EST GLOMERULAR FILTRATION RATE 89.7 ML/MIN; Potassium 3.9 mmol/L (3.5-5.1)
[2023-07-31] MEDS: Coreg PO SCH (12:18)
[2023-07-31] MEDS ORDERED: Sensorcaine 0.25% 10 ML ONE (13:19)
[2023-07-31] MEDS ORDERED: DIPRIVAN 200 MG/20 ML IV ONE ×2 (13:51→14:20)
[2023-07-31] MEDS ORDERED: SUBLIMAZE 100 MCG/2 ML ONE (13:51)
--- NOTE | 2023-07-31 14:59 | OP ---
SURGERY DATE: 07/31/2023 SURGERY TIME: 1420 PREOPERATIVE DIAGNOSIS: 1. INFECTED RUPTURED CYST SITE LEFT GROIN AREA. POSTOPERATIVE DIAGNOSIS: 1. INFECTED RUPTURED CYST SITE LEFT GROIN AREA. PROCEDURE: 1. Excisional biopsy ruptured cyst/abscess site left groin with culture, irrigation, and packing. SURGEON: Dr. Viral Pritchard. ANESTHESIA: MAC. ESTIMATED BLOOD LOSS: Minimal. INDICATIONS: Consent obtained. DESCRIPTION OF PROCEDURE AND FINDINGS: The site was confirmed and marked preoperatively. MAC anesthesia was introduced. She was prepped and draped in the sterile fashion. 1% Lidocaine local was infiltrated in a field pattern around the site going out around this ruptured cyst site. Dissection carried down to clean subcutaneous tissue around this ruptured cyst or abscess cavity. It was about 5 cm X 2 cm wide X 2 cm deep. There was some fat deep that was also discarded. Wound edges were viable with some pinpoint cautery. Good hemostasis noted. Wound was cultured. Wound was irrigated out. It was then packed with " new gauze, but patient to change into normal saline wet-to-dry. She tolerated the procedure well. There were no immediate complications. There was no family to discuss any findings with. She will go home. Remove packing and repack the wound on a daily basis starting tomorrow. Will see her back in the office next week. Apparently, she is allergic to Sulfa, so will put her on some Cipro short-term and have her follow-up in the office.
[2023-07-31 15:13] VITALS: TEMP 97.3
[2023-07-31 15:28] VITALS: BP 125/76; PULSE 68; O2SAT 91
== END 2023-07-31 15:35 | disposition home or self-care (01) ==
LOC: SDC 10:50
PROVIDERS: ATTEND Surgery
DX: L72.0 Epidermal cyst (principal)
CPT/HCPCS: 36415; 80048; 85027; 87070; 87075; 87116; 87205; 87206; 88304; 93005; J2704; J3010; A9270-GY